=== PATIENT | female | born 1950 | race Caucasian/White ===

== ENCOUNTER → 2016-05-08 | Outpatient (CLI) | payer MEDICARE, MEDICAID ==
[~2016-05-08] MED LIST: ABILIFY 15MG TA15 MG PO; ABILIFY5 MG PO; ACTOS 45MG45 MG/TAB PO; ALBUTEROL0.83 MG/ML IH; ALDACTONE 100M100 MG PO; ALDACTONE50 MG PO; ALLEGRA180 MG PO; ALTACE 5MG5 MG PO; AMBIEN10 MG PO; AMBIEN5 MG PO; AMITRIPTYLINE H25 M1 PO; AMITRIPTYLINE H50 M1 PO; ANTIVERT 25MG25 MG PO; ASPIR-LOW81 MG PO; ASPIRIN E.C. 8181 MG PO; ATIVAN0.5 MG PO; BACITRACIN OPH3.5 GM OU; BACLOFEN10 MG PO; BASAGLAR K100 UNIT/1; BASAGLAR K100 UNIT/1 SQ; BENADRYL25 M1 PO; BICTOZA PO; CADUET 10 MG-201 TAB PO; CALCIUM CARBO1250 MG PO; CELEXA 20MG20 MG/TAB PO; CELEXA20 MG PO; CENTRUM1 TAB PO; CLARITIN 1010 MG/TAB PO; COLACE 100100 MG/CAP PO; CORTEF 10MG TAB10 MG PO; CRESTOR 10MG10 MG PO; CRESTOR10 MG PO; CYMBALTA 30MG30 MG PO; DECADRON0.5 MG PO; DESYREL 50MG50 MG PO; DIABETA 5MG5 MG/TAB PO; DILANTIN 100MG100 MG PO; DOCUSATE CALCI100 MG PO; EXFORGE 5/160 PO; FLEXERIL5 MG PO; FLONASE NASAL S16 GM NS; FOSAMAX 70MG TA70 MG PO; GABAPENTIN300 M1 PO; GLUCOPHAGE500 MG/TAB PO; HEPARIN LOCK FLU5 M1 IV; HUMALOG100 U/ML SC; HUMALOG100 U/ML SQ; HYDROCODONE/APAP; JANUVIA100 MG PO; K-DUR 10 MEQ T10 MEQ; K-DUR 10 MEQ T10 MEQ PO; KEPPRA 500MG500 MG PO; KEPPRA750 MG PO; KLONOPIN 0.5MG0.5 MG PO; KLONOPIN 1MG1 MG PO; KLONOPIN1 MG PO; KLOR-CON SPRIN10 MEQ PO; LACTULOSE10 GM/153 PO; LANTUS; LANTUS SOLOS100 U/ML SQ; LANTUS100 U/ML SC; LANTUS100 U/ML SQ; LASIX 20MG TABL20 MG PO; LASIX 40MG TABL40 MG PO; LEVAQUIN 5500 MG/TA1 PO; LEVEMIR FLEX100 U/ML SQ; LEVEMIR SQ; LEVEMIR100 U/ML SC; LEXAPRO20 MG PO; LIORESAL 1010 MG/TAB PO; LIPITOR20 MG PO; LISINOPRIL/HCTZ1 TA2 PO; LISINOPRIL10 MG PO; MACROBID 1100 MG/CAP PO; MAG-OX 400400 MG/TAB PO; METANX 2.8 MG-21 TAB PO; MICRO-K 1010 MEQ PO; MIRAPEX PO; MULTIVITAMIN1 CTB PO; NEURONTIN300 MG PO; NEURONTIN300 MG/CAP PO; NORCO 325 MG-51 TAB PO; NOVOLOG 100U100 U/M1 SC; NOVOLOG 100U100 U/M1 SQ; NOVOLOG FLEX100 U/ML SQ; NS INT FLUSH 1010 ML IV; NYSTAT-RX1 POW; NYSTATIN POWDER30 GM TOP; OMEPRAZOLE D/R20 MG PO; PREMARIN 0.60.625 MG PO; PRESERVISION1 SGL PO; PRILOSEC 20MG20 MG PO; PRINIVIL2.5 MG PO; PRINIVIL5 MG PO; REGLAN 5MG T5 MG/TAB PO; REMERON15 MG PO; REQUIP 1MG T1 MG/TAB PO; REQUIP2 MG PO; RISPERDAL 1M1 MG/TAB PO; SIMVASTATIN40 MG PO; SINEMET 25/101 UDTAB PO; SUPRAX200 MG PO; SYMBICORT1 AE2 IH; TEGRETOL 2200 MG/TA1 PO; TEGRETOL 2200 MG/TAB PO; TRAZODONE HCL100 MG PO; TYLENOL 325MG325 MG PO; TYLENOL 500MG500 MG PO; ULTRAM 50MG TAB50 MG PO; UNABLE; VISTARIL 2525 MG/CAP PO; VITAMIN D1000 IU PO; XIFAXAN550 MG PO; ZANTAC 150150 MG PO; ZAROXOLYN 2.52.5 MG PO; ZAROXOLYN5 MG PO; ZESTRIL 5MG5 MG PO; ZESTRIL2.5 MG PO; ZOCOR 40MG40 MG PO; ZOFRAN 4MG T4 MG/TAB PO; ZOFRAN8 MG PO; ZOLOFT 25MG25 MG PO; ZOLOFT100 MG PO; ZOLPIDEM5 MG PO; [UNRECOGNIZED DRUG - CODE] PO; [UNRECOGNIZED DRUG - OTHER] PO
== END ==
LOC: MHCPAIN 08:49
DX: G89.29 Other chronic pain (principal); M47.816 Spondylosis without myelopathy or radiculopathy, lumbar region; M53.3 Sacrococcygeal disorders, not elsewhere classified
CPT/HCPCS: G0463

== ENCOUNTER 2016-05-13 02:42 | Observation (INO) | payer MEDICARE, MEDICAID ==
[~2016-05-13] VITALS: Ht 154.9 cm; Wt 86.9 kg
[~2016-05-13 02:42] MED LIST changes: -ALDACTONE 100M100 MG PO; -ALDACTONE50 MG PO; -AMITRIPTYLINE H25 M1 PO; -AMITRIPTYLINE H50 M1 PO; -BACITRACIN OPH3.5 GM OU; -BASAGLAR K100 UNIT/1; -BASAGLAR K100 UNIT/1 SQ; -CYMBALTA 30MG30 MG PO; -DIABETA 5MG5 MG/TAB PO; -FLEXERIL5 MG PO; -HEPARIN LOCK FLU5 M1 IV; -K-DUR 10 MEQ T10 MEQ; -K-DUR 10 MEQ T10 MEQ PO; -KLOR-CON SPRIN10 MEQ PO; -LACTULOSE10 GM/153 PO; -LANTUS SOLOS100 U/ML SQ; -LASIX 20MG TABL20 MG PO; -LEVAQUIN 5500 MG/TA1 PO; -LEVEMIR FLEX100 U/ML SQ; -LEVEMIR SQ; -MACROBID 1100 MG/CAP PO; -MAG-OX 400400 MG/TAB PO; -MULTIVITAMIN1 CTB PO; -NOVOLOG 100U100 U/M1 SQ; -NOVOLOG FLEX100 U/ML SQ; -NS INT FLUSH 1010 ML IV; -NYSTATIN POWDER30 GM TOP; -PRESERVISION1 SGL PO; -PRINIVIL2.5 MG PO; -PRINIVIL5 MG PO; -REQUIP 1MG T1 MG/TAB PO; -SUPRAX200 MG PO; -TEGRETOL 2200 MG/TA1 PO; -VISTARIL 2525 MG/CAP PO; -XIFAXAN550 MG PO; -ZAROXOLYN 2.52.5 MG PO; -ZAROXOLYN5 MG PO; -ZESTRIL 5MG5 MG PO
[2016-05-13 03:27] LABS: BASO % 0.7 % (0.0-2.0); EOS # 0.3 (0.0-0.7); EOS % 8.3 % (0-4.0); GRAN # 1.4 (1.4-6.5); GRAN % 46.1 % (42.2-75.2); MEAN CELL VOLUME 89 fl (80.0-100.0); MEAN CORPUSCULAR HGB CONC 33 g/dl (33.0-37.0); MONO # 0.4 (0.1-0.6); MONO % 11.9 % (1.7-9.3)
[2016-05-13 03:28] LABS: HEMATOCRIT 33.8 % (37.0-47.0); HEMOGLOBIN 11.2 g/dl (12.5-16.0); MEAN CORPUSCULAR HEMOGLOBIN 29 pg (27.0-31.0); PLATELET COUNT 73 K/mm3 (130-400)
[2016-05-13 03:42] LABS: ALANINE AMINOTRANSFERASE 28 U/L (9-52); ALKALINE PHOSPHATASE 117 U/L (50-136); ANION GAP 8 mmol/L (7-16); BILIRUBIN,TOTAL 1.8 mg/dL (0.0-1.0); BLOOD UREA NITROGEN 10 mg/dL (7-17); CALCIUM 8.2 mg/dL (8.4-10.2); CARBON DIOXIDE 33 mmol/L (22-30); CHLORIDE 98 mmol/L (98-107); CREATINE KINASE 59 U/L (30-135); CREATININE, serum 0.66 mg/dL (0.52-1.25); GLUCOSE 194 mg/dL (74-106); INR 1.3 (0.8-3.0); LIPASE 126 U/L (23-300); POTASSIUM 3.4 mmol/L (3.4-5.0); PROTHROMBIN TIME 14.4 SECONDS (9.7-12.8); SODIUM 138 mmol/L (137-145); TOTAL PROTEIN 6.2 gm/dL (6.4-8.2)
[2016-05-13 03:43] LABS: INFLUENZA B NEGATIVE
[2016-05-13 03:47] LABS: PH 5 (5-8); URINE APPEARANCE Clear; URINE BACTERIA None Seen /hpf; URINE BILIRUBIN Negative (NEGATIVE); URINE BLOOD Negative (NEGATIVE); URINE COLOR Amber; URINE GLUCOSE 3+ (NEGATIVE); URINE KETONE Trace (NEGATIVE); URINE RBC 0-2 /hpf; URINE UROBILINOGEN >=4.0 mg/dL (NEGATIVE); URINE WBC 0-2 /hpf
[2016-05-13 03:52] LABS: B-TYPE NATRIURETIC PEPTIDE 117 pg/mL (0-125)
[2016-05-13 03:53] LABS: TROPONIN-I < 0.012 ng/mL (0.000-0.034)
[2016-05-13] MEDS ORDERED: CYMBALTA 30MG30 MG PO (05:51)
[2016-05-13] MEDS ORDERED: PRINIVIL2.5 MG PO (05:52)
[2016-05-13] MEDS ORDERED: VISTARIL 2525 MG/CAP PO (05:53)
[2016-05-13] MEDS ORDERED: TEGRETOL 2200 MG/TA1 PO (05:53)
[2016-05-13] MEDS ORDERED: NORCO 325 MG-51 TAB PO (05:54)
[2016-05-13] MEDS ORDERED: NOVOLOG FLEX100 U/ML SQ (05:56)
[2016-05-13] MEDS ORDERED: LANTUS SOLOS100 U/ML SQ (05:56)
[2016-05-13] MEDS ORDERED: REQUIP 1MG T1 MG/TAB PO (06:08)
[2016-05-13] MEDS ORDERED: SINEMET 25/101 UDTAB PO (06:13)
[2016-05-13 06:56] VITALS: BP 153/66; PULSE 73; TEMP 89.1; TEMP 98.1
[2016-05-13] MEDS ORDERED: NYSTATIN POWDER30 GM TOP (07:46)
[2016-05-13 08:24] VITALS: BP 160/69; PULSE 73; TEMP 98.4
[2016-05-13 09:00] LABS: AMPHETAMINE URINE NEGATIVE; BARBITURATES URINE NEGATIVE; BENZODIAZEPINES URINE POSITIVE; BUPRENORPHINE URINE NEGATIVE; METHADONE URINE NEGATIVE; OPIATES URINE NEGATIVE; OXYCODONE URINE NEGATIVE; PHENCYCLIDINE URINE NEGATIVE; PROPOXYPHENE URINE NEGATIVE; THC CANNABINOIDS URINE NEGATIVE
[2016-05-13 09:14] LABS: CALCIUM 7.8 mg/dL (8.4-10.2); CREATININE, serum 0.57 mg/dL (0.52-1.25); POTASSIUM 3.4 mmol/L (3.4-5.0)
[2016-05-13 09:28] LABS: PROLACTIN 2.2 ng/mL (3.0-18.6)
[2016-05-13 09:42] LABS: THYROID STIMULATING HORMONE 0.313 uIU/mL (0.465-4.680)
[2016-05-13] MEDS ORDERED: BACITRACIN OPH3.5 GM OU (10:15)
[2016-05-13 12:16] VITALS: BP 138/86; PULSE 75; TEMP 97.2
[2016-05-13 16:08] VITALS: BP 157/65; PULSE 73; TEMP 98.4
[2016-05-13 20:13] VITALS: BP 157/59; PULSE 74; TEMP 98.1
[2016-05-14 00:08] VITALS: BP 98/64; PULSE 81; TEMP 98.8
[2016-05-14 03:29] VITALS: BP 156/58; PULSE 81; TEMP 98.7
[2016-05-14 08:45] VITALS: BP 169/67; PULSE 80; TEMP 97.9
[2016-05-14 09:53] LABS: MAGNESIUM 1.5 mg/dL (1.6-2.3)
[2016-05-14 10:25] LABS: THYROID STIMULATING HORMONE 0.691 uIU/mL (0.465-4.680)
[2016-05-14 10:54] LABS: THYROXINE (T4)-TOTAL 5.3 ug/dL (5.5-11.0)
[2016-05-14] MEDS ORDERED: NEURONTIN300 MG/CAP PO (11:02)
[2016-05-14] MEDS ORDERED: KLONOPIN 0.5MG0.5 MG PO (11:02)
[2016-05-15 13:14] LABS: ALBUMIN FRACTION 2.8 g/dL (2.6-4.5); ALBUMIN PERCENTAGE 54.7 % (48.7-61.8); ALPHA 1 FRACTION 0.3 g/dL (0.3-0.5); ALPHA 1 PERCENTAGE 5.4 % (3.4-8.3); ALPHA 2 FRACTION 0.5 g/dL (0.6-1.2); ALPHA 2 PERCENTAGE 9.3 % (8.4-17.5); BETA 1 FRACTION 0.4 g/dL (0.4-0.6); BETA 1 PERCENTAGE 7.7 % (5.4-8.9); BETA 2 FRACTION 0.4 g/dL (0.2-0.5); BETA 2 PERCENTAGE 7.1 % (3.8-7.7); GAMMA FRACTION 0.8 g/dL (0.4-1.7); GAMMA PERCENTAGE 15.8 % (8.1-23.0); SERUM PROTEIN TOTAL 5.2 g/dL (6.0-7.6)
[2016-05-16 14:23] LABS: .COPPER,S 1.42 mcg/mL (())
[2016-05-21 08:59] LABS: VITAMIN E 4.3 mg/L (())
== END 2016-05-14 13:27 | disposition home or self-care (01) ==
LOC: COL.ER 02:42 → MEDICAL 05:24
PROVIDERS: Emergency Medicine; Internal Medicine; Psychiatry & Neurology Neurology
DX: R41.82 Altered mental status, unspecified (principal); G20 Parkinson's disease; G50.0 Trigeminal neuralgia; R55 Syncope and collapse; E11.42 Type 2 diabetes mellitus with diabetic polyneuropathy; Z79.4 Long term (current) use of insulin; D69.6 Thrombocytopenia, unspecified; I10 Essential (primary) hypertension; G47.33 Obstructive sleep apnea (adult) (pediatric); F32.9 Major depressive disorder, single episode, unspecified
CPT/HCPCS: 99222-AI; G0378; G8978-GP; G8979-GP; J7030

== ENCOUNTER → 2016-05-16 | Outpatient (CLI) | payer MEDICARE, MEDICAID ==
[~2016-05-16] MED LIST changes: +ALDACTONE 100M100 MG PO; +ALDACTONE50 MG PO; +AMITRIPTYLINE H25 M1 PO; +AMITRIPTYLINE H50 M1 PO; +BACITRACIN OPH3.5 GM OU; +BASAGLAR K100 UNIT/1; +BASAGLAR K100 UNIT/1 SQ; +CYMBALTA 30MG30 MG PO; +DIABETA 5MG5 MG/TAB PO; +FLEXERIL5 MG PO; +HEPARIN LOCK FLU5 M1 IV; +K-DUR 10 MEQ T10 MEQ; +K-DUR 10 MEQ T10 MEQ PO; +KLOR-CON SPRIN10 MEQ PO; +LACTULOSE10 GM/153 PO; +LANTUS SOLOS100 U/ML SQ; +LASIX 20MG TABL20 MG PO; +LEVAQUIN 5500 MG/TA1 PO; +LEVEMIR FLEX100 U/ML SQ; +LEVEMIR SQ; +MACROBID 1100 MG/CAP PO; +MAG-OX 400400 MG/TAB PO; +MULTIVITAMIN1 CTB PO; +NOVOLOG 100U100 U/M1 SQ; +NOVOLOG FLEX100 U/ML SQ; +NS INT FLUSH 1010 ML IV; +NYSTATIN POWDER30 GM TOP; +PRESERVISION1 SGL PO; +PRINIVIL2.5 MG PO; +PRINIVIL5 MG PO; +REQUIP 1MG T1 MG/TAB PO; +SUPRAX200 MG PO; +TEGRETOL 2200 MG/TA1 PO; +VISTARIL 2525 MG/CAP PO; +XIFAXAN550 MG PO; +ZAROXOLYN 2.52.5 MG PO; +ZAROXOLYN5 MG PO; +ZESTRIL 5MG5 MG PO
== END ==
LOC: MHCPAIN 10:14
DX: Z53.8 Procedure and treatment not carried out for other reasons (principal)

== ENCOUNTER 2016-05-23 12:20 | Emergency (ER) | payer MEDICARE, MEDICAID ==
[~2016-05-23] VITALS: Ht 154.9 cm; Wt 85.5 kg
[~2016-05-23 12:20] MED LIST changes: -ALDACTONE 100M100 MG PO; -ALDACTONE50 MG PO; -AMITRIPTYLINE H25 M1 PO; -AMITRIPTYLINE H50 M1 PO; -BASAGLAR K100 UNIT/1; -BASAGLAR K100 UNIT/1 SQ; -DIABETA 5MG5 MG/TAB PO; -FLEXERIL5 MG PO; -HEPARIN LOCK FLU5 M1 IV; -K-DUR 10 MEQ T10 MEQ; -K-DUR 10 MEQ T10 MEQ PO; -KLOR-CON SPRIN10 MEQ PO; -LACTULOSE10 GM/153 PO; -LASIX 20MG TABL20 MG PO; -LEVAQUIN 5500 MG/TA1 PO; -LEVEMIR FLEX100 U/ML SQ; -LEVEMIR SQ; -MACROBID 1100 MG/CAP PO; -MAG-OX 400400 MG/TAB PO; -MULTIVITAMIN1 CTB PO; -NOVOLOG 100U100 U/M1 SQ; -NS INT FLUSH 1010 ML IV; -PRESERVISION1 SGL PO; -PRINIVIL5 MG PO; -SUPRAX200 MG PO; -XIFAXAN550 MG PO; -ZAROXOLYN 2.52.5 MG PO; -ZAROXOLYN5 MG PO; -ZESTRIL 5MG5 MG PO
[2016-05-23 12:28] VITALS: TEMP 98.1
[2016-05-23 12:51] LABS: BASO % 0.7 % (0.0-2.0); EOS # 0.3 (0.0-0.7); EOS % 5.7 % (0-4.0); LYMPH # 0.8 (1.2-3.4); LYMPH % 18.3 % (20.0-51.0); MEAN CELL VOLUME 89 fl (80.0-100.0); MEAN CORPUSCULAR HGB CONC 33 g/dl (33.0-37.0); MEAN PLATELET VOLUME 11.9 fl (7.4-10.4); MONO # 0.5 (0.1-0.6); MONO % 11.1 % (1.7-9.3); PLATELET COUNT 77 K/mm3 (130-400); RED BLOOD COUNT 3.81 M/mm3 (4.10-5.30); REDCELL DISTRIBUTION WIDTH-CV 14.3 % (11.5-14.5); WHITE BLOOD COUNT 4.6 K/mm3 (4.8-10.8)
[2016-05-23 12:55] LABS: ADJUSTED CALCIUM 9.3 mg/dL (8.4-10.2); ALANINE AMINOTRANSFERASE 23 U/L (9-52); ALBUMIN 3.2 gm/dL (3.5-5.0); ALKALINE PHOSPHATASE 176 U/L (50-136); ANION GAP 9 mmol/L (7-16); BILIRUBIN,TOTAL 1.3 mg/dL (0.0-1.0); BLOOD UREA NITROGEN 9 mg/dL (7-17); CALCIUM 8.7 mg/dL (8.4-10.2); CARBON DIOXIDE 31 mmol/L (22-30); CHLORIDE 96 mmol/L (98-107); CREATINE KINASE 105 U/L (30-135); CREATININE, serum 0.66 mg/dL (0.52-1.25); GLUCOSE 380 mg/dL (74-106); SODIUM 136 mmol/L (137-145); TOTAL PROTEIN 6.6 gm/dL (6.4-8.2)
[2016-05-23 12:58] LABS: HEMOGLOBIN 11.1 g/dl (12.5-16.0); MEAN CORPUSCULAR HEMOGLOBIN 29 pg (27.0-31.0)
[2016-05-23 13:06] LABS: B-TYPE NATRIURETIC PEPTIDE 108 pg/mL (0-125)
[2016-05-23 13:19] LABS: TROPONIN-I < 0.012 ng/mL (0.000-0.034)
[2016-05-23 13:37] LABS: INR 1.2 (0.8-3.0); PROTHROMBIN TIME 13.9 SECONDS (9.7-12.8)
[2016-05-23 13:54] LABS: PH 6 (5-8); SQUAMOUS EPITHELIAL 0-2 /hpf; URINE APPEARANCE Hazy; URINE BACTERIA Rare /hpf; URINE BILIRUBIN Negative (NEGATIVE); URINE BLOOD Negative (NEGATIVE); URINE COLOR Yellow; URINE GLUCOSE 3+ (NEGATIVE); URINE KETONE Negative (NEGATIVE); URINE RBC 0-2 /hpf; URINE WBC >50 /hpf
[2016-05-23] MEDS ORDERED: SINEMET 25/101 UDTAB PO (15:34)
[2016-05-23] MEDS ORDERED: LEVAQUIN 5500 MG/TA1 PO (15:34)
[2016-05-23 16:19] VITALS: BP 146/70; PULSE 88
== END 2016-05-23 16:19 | disposition home or self-care (01) ==
LOC: COL.ER 12:20
PROVIDERS: Emergency Medicine
DX: N39.0 Urinary tract infection, site not specified (principal); B96.89 Other specified bacterial agents as the cause of diseases classified elsewhere; G20 Parkinson's disease; I10 Essential (primary) hypertension; E11.9 Type 2 diabetes mellitus without complications; Z79.4 Long term (current) use of insulin
CPT/HCPCS: J1956

== ENCOUNTER → 2016-06-24 | Outpatient (CLI) | payer MEDICARE, MEDICAID ==
[~2016-06-24] MED LIST changes: +ALDACTONE 100M100 MG PO; +ALDACTONE50 MG PO; +AMITRIPTYLINE H25 M1 PO; +AMITRIPTYLINE H50 M1 PO; +BASAGLAR K100 UNIT/1; +BASAGLAR K100 UNIT/1 SQ; +DIABETA 5MG5 MG/TAB PO; +FLEXERIL5 MG PO; +HEPARIN LOCK FLU5 M1 IV; +K-DUR 10 MEQ T10 MEQ; +K-DUR 10 MEQ T10 MEQ PO; +KLOR-CON SPRIN10 MEQ PO; +LACTULOSE10 GM/153 PO; +LASIX 20MG TABL20 MG PO; +LEVAQUIN 5500 MG/TA1 PO; +LEVEMIR FLEX100 U/ML SQ; +LEVEMIR SQ; +MACROBID 1100 MG/CAP PO; +MAG-OX 400400 MG/TAB PO; +MULTIVITAMIN1 CTB PO; +NOVOLOG 100U100 U/M1 SQ; +NS INT FLUSH 1010 ML IV; +PRESERVISION1 SGL PO; +PRINIVIL5 MG PO; +SUPRAX200 MG PO; +XIFAXAN550 MG PO; +ZAROXOLYN 2.52.5 MG PO; +ZAROXOLYN5 MG PO; +ZESTRIL 5MG5 MG PO
== END ==
LOC: COL.RAD 08:55
DX: G20 Parkinson's disease (principal); R13.19 Other dysphagia
CPT/HCPCS: G8996-GN; G8997-GN; G8998-GN

== ENCOUNTER 2016-07-15 14:15 | Outpatient (RCR) | payer MEDICARE, MEDICAID ==
[~2016-07-15 14:15] MED LIST changes: -ALDACTONE 100M100 MG PO; -ALDACTONE50 MG PO; -AMITRIPTYLINE H25 M1 PO; -AMITRIPTYLINE H50 M1 PO; -BASAGLAR K100 UNIT/1; -BASAGLAR K100 UNIT/1 SQ; -DIABETA 5MG5 MG/TAB PO; -FLEXERIL5 MG PO; -HEPARIN LOCK FLU5 M1 IV; -K-DUR 10 MEQ T10 MEQ; -K-DUR 10 MEQ T10 MEQ PO; -KLOR-CON SPRIN10 MEQ PO; -LACTULOSE10 GM/153 PO; -LASIX 20MG TABL20 MG PO; -LEVEMIR FLEX100 U/ML SQ; -LEVEMIR SQ; -MACROBID 1100 MG/CAP PO; -MAG-OX 400400 MG/TAB PO; -MULTIVITAMIN1 CTB PO; -NOVOLOG 100U100 U/M1 SQ; -NS INT FLUSH 1010 ML IV; -PRESERVISION1 SGL PO; -PRINIVIL5 MG PO; -SUPRAX200 MG PO; -XIFAXAN550 MG PO; -ZAROXOLYN 2.52.5 MG PO; -ZAROXOLYN5 MG PO; -ZESTRIL 5MG5 MG PO
[2016-07-22] MEDS ORDERED: TEGRETOL 2200 MG/TA1 PO (05:21)
[2016-07-22] MEDS ORDERED: CYMBALTA 30MG30 MG PO (05:22)
[2016-07-22] MEDS ORDERED: LASIX 20MG TABL20 MG PO (05:23)
[2016-07-22] MEDS ORDERED: K-DUR 10 MEQ T10 MEQ PO (05:24)
[2016-07-22] MEDS ORDERED: REQUIP 1MG T1 MG/TAB PO (05:25)
[2016-07-22] MEDS ORDERED: AMITRIPTYLINE H25 M1 PO (05:25)
[2016-07-22] MEDS ORDERED: SINEMET 25/101 UDTAB PO (08:05)
[2016-07-22] MEDS ORDERED: NEURONTIN300 MG/CAP PO (08:08)
[2016-07-22] MEDS ORDERED: NOVOLOG 100U100 U/M1 SQ (08:13)
[2016-07-22] MEDS ORDERED: ZESTRIL 5MG5 MG PO (08:16)
[2016-07-22] MEDS ORDERED: PRESERVISION1 SGL PO (08:18)
[2016-07-22] MEDS ORDERED: MULTIVITAMIN1 CTB PO (08:19)
[2016-07-23] MEDS ORDERED: LACTULOSE10 GM/153 PO (15:23)
[2016-07-28] MEDS ORDERED: LANTUS SOLOS100 U/ML SQ (20:09)
[2016-07-28] MEDS ORDERED: NOVOLOG 100U100 U/M1 SQ (20:14)
[2016-08-03] MEDS ORDERED: SUPRAX200 MG PO (12:26)
[2016-08-12] MEDS ORDERED: ALDACTONE50 MG PO (13:50)
[2016-08-12] MEDS ORDERED: ZAROXOLYN 2.52.5 MG PO (13:51)
[2016-08-12] MEDS ORDERED: MAG-OX 400400 MG/TAB PO (13:51)
[2016-08-12] MEDS ORDERED: COLACE 100100 MG/CAP PO (13:52)
[2016-08-12] MEDS ORDERED: NOVOLOG FLEX100 U/ML SQ (13:53)
[2016-08-12] MEDS ORDERED: DIABETA 5MG5 MG/TAB PO (13:54)
[2016-08-12] MEDS ORDERED: LEVEMIR FLEX100 U/ML SQ (13:56)
[2016-08-12] MEDS ORDERED: HEPARIN LOCK FLU5 M1 IV (14:22)
[2016-08-12] MEDS ORDERED: NS INT FLUSH 1010 ML IV (14:22)
== END 2016-08-12 15:26 | disposition home or self-care (01) ==
LOC: WSPT 14:15
DX: M53.3 Sacrococcygeal disorders, not elsewhere classified (principal)
CPT/HCPCS: G8978-GP; G8979-GP; G8980-GP

== ENCOUNTER 2016-07-22 04:14 | Inpatient (IN) | payer MEDICARE, MEDICAID ==
[~2016-07-22] VITALS: Ht 154.9 cm; Wt 96.7 kg
[2016-07-22] VITALS (16 sets, daily range): BP systolic 106–130; BP diastolic 45–67; PULSE 74–81; TEMP 97.7–98.4
[2016-07-22 04:46] LABS: PH 6 (5-8); SQUAMOUS EPITHELIAL 0-2 /hpf; URINE APPEARANCE Clear; URINE BACTERIA None Seen /hpf; URINE BILIRUBIN Negative (NEGATIVE); URINE BLOOD Negative (NEGATIVE); URINE COLOR Yellow; URINE GLUCOSE 3+ (NEGATIVE); URINE KETONE Trace (NEGATIVE); URINE RBC 0-2 /hpf; URINE UROBILINOGEN Negative (NEGATIVE); URINE WBC 0-2 /hpf
[2016-07-22 05:09] LABS: ADJUSTED CALCIUM 8.9 mg/dL (8.4-10.2); ALBUMIN 2.7 gm/dL (3.5-5.0); BILIRUBIN,TOTAL 0.8 mg/dL (0.0-1.0); CALCIUM 7.9 mg/dL (8.4-10.2); CREATININE, serum 0.69 mg/dL (0.52-1.25); POTASSIUM 3.9 mmol/L (3.4-5.0); TOTAL PROTEIN 5.5 gm/dL (6.4-8.2)
[2016-07-22] MEDS ORDERED: TEGRETOL 2200 MG/TA1 PO (05:21)
[2016-07-22] MEDS ORDERED: CYMBALTA 30MG30 MG PO (05:22)
[2016-07-22] MEDS ORDERED: LASIX 20MG TABL20 MG PO (05:23)
[2016-07-22] MEDS ORDERED: K-DUR 10 MEQ T10 MEQ PO (05:24)
[2016-07-22] MEDS ORDERED: REQUIP 1MG T1 MG/TAB PO (05:25)
[2016-07-22] MEDS ORDERED: AMITRIPTYLINE H25 M1 PO (05:25)
[2016-07-22 06:17] LABS: BASO % 0.3 % (0.0-2.0); EOS # 0.4 (0.0-0.7); EOS % 10.7 % (0-4.0); GRAN # 1.5 (1.4-6.5); GRAN % 47.1 % (42.2-75.2); LYMPH # 0.9 (1.2-3.4); LYMPH % 27.2 % (20.0-51.0); MEAN CELL VOLUME 82 fl (80.0-100.0); MEAN CORPUSCULAR HGB CONC 29 g/dl (33.0-37.0); MEAN PLATELET VOLUME 11.1 fl (7.4-10.4); MONO # 0.5 (0.1-0.6); MONO % 14.4 % (1.7-9.3); PLATELET COUNT 84 K/mm3 (130-400); RED BLOOD COUNT 1.89 M/mm3 (4.10-5.30); REDCELL DISTRIBUTION WIDTH-CV 15.9 % (11.5-14.5); WHITE BLOOD COUNT 3.3 K/mm3 (4.8-10.8)
[2016-07-22 06:19] LABS: HEMATOCRIT 15.4 % (37.0-47.0); HEMOGLOBIN 4.4 g/dl (12.5-16.0); MEAN CORPUSCULAR HEMOGLOBIN 23 pg (27.0-31.0)
[2016-07-22] MEDS ORDERED: SINEMET 25/101 UDTAB PO (08:05)
[2016-07-22] MEDS ORDERED: NEURONTIN300 MG/CAP PO (08:08)
[2016-07-22] MEDS ORDERED: NOVOLOG 100U100 U/M1 SQ (08:13)
[2016-07-22] MEDS ORDERED: ZESTRIL 5MG5 MG PO (08:16)
[2016-07-22] MEDS ORDERED: PRESERVISION1 SGL PO (08:18)
[2016-07-22] MEDS ORDERED: MULTIVITAMIN1 CTB PO (08:19)
[2016-07-22 14:00] LABS: HEMATOCRIT 20.3 % (37.0-47.0); HEMOGLOBIN 6.2 g/dl (12.5-16.0)
[2016-07-22 14:23] LABS: RETIC % 1.6 % (0.5-3.52)
[2016-07-22 18:30] LABS: HEMATOCRIT 23.5 % (37.0-47.0); HEMOGLOBIN 7.2 g/dl (12.5-16.0)
[2016-07-23 03:56] VITALS: BP 113/47; PULSE 78; TEMP 98.6
[2016-07-23 07:17] VITALS: BP 111/38; PULSE 79; TEMP 98.2
[2016-07-23 08:52] LABS: MEAN CELL VOLUME 82 fl (80.0-100.0); MEAN CORPUSCULAR HGB CONC 30 g/dl (33.0-37.0); MEAN PLATELET VOLUME 11.1 fl (7.4-10.4); PLATELET COUNT 95 K/mm3 (130-400); RED BLOOD COUNT 2.83 M/mm3 (4.10-5.30); REDCELL DISTRIBUTION WIDTH-CV 15.1 % (11.5-14.5); WHITE BLOOD COUNT 3.7 K/mm3 (4.8-10.8)
[2016-07-23 09:03] LABS: HEMATOCRIT 23.1 % (37.0-47.0); MEAN CORPUSCULAR HEMOGLOBIN 25 pg (27.0-31.0)
[2016-07-23 09:10] LABS: CALCIUM 7.9 mg/dL (8.4-10.2); CREATININE, serum 0.6 mg/dL (0.52-1.25); POTASSIUM 3.4 mmol/L (3.4-5.0)
[2016-07-23 14:15] VITALS: BP 147/68; PULSE 81
[2016-07-23] MEDS ORDERED: LACTULOSE10 GM/153 PO (15:23)
== END 2016-07-23 17:00 | disposition home or self-care (01) | DRG 812 ==
LOC: COL.ER 04:14 → MEDICAL 06:45
PROVIDERS: Emergency Medicine; Internal Medicine; Internal Medicine Gastroenterology
PROC: 0DJ08ZZ Inspection of Upper Intestinal Tract, Via Natural or Artificial Opening Endoscopic (ICD-10-PCS; 2016-07-22)
PROC: 0DBL8ZX Excision of Transverse Colon, Via Natural or Artificial Opening Endoscopic, Diagnostic (ICD-10-PCS; 2016-07-23)
PROC: 0DBN8ZX Excision of Sigmoid Colon, Via Natural or Artificial Opening Endoscopic, Diagnostic (ICD-10-PCS; principal; 2016-07-23 11:30)
DX: D50.0 Iron deficiency anemia secondary to blood loss (chronic) (principal); K76.6 Portal hypertension; I85.10 Secondary esophageal varices without bleeding; E87.1 Hypo-osmolality and hyponatremia; D61.818 Other pancytopenia; E44.0 Moderate protein-calorie malnutrition; Z68.41 Body mass index [BMI] 40.0-44.9, adult; Z66 Do not resuscitate; D12.5 Benign neoplasm of sigmoid colon; K74.69 Other cirrhosis of liver; K75.81 Nonalcoholic steatohepatitis (NASH); I10 Essential (primary) hypertension; E11.9 Type 2 diabetes mellitus without complications; Z79.4 Long term (current) use of insulin
CPT/HCPCS: 99223-AI; 99239; C9113; J1815; J1940; J2250; J3010; J7030; P9016

== ENCOUNTER 2016-07-28 19:14 | Inpatient (IN) | payer MEDICARE, MEDICAID ==
[~2016-07-28] VITALS: Ht 154.9 cm; Wt 101.0 kg
[~2016-07-28 19:14] MED LIST changes: +AMITRIPTYLINE H25 M1 PO; +K-DUR 10 MEQ T10 MEQ PO; +LACTULOSE10 GM/153 PO; +LASIX 20MG TABL20 MG PO; +MULTIVITAMIN1 CTB PO; +NOVOLOG 100U100 U/M1 SQ; +PRESERVISION1 SGL PO; +ZESTRIL 5MG5 MG PO
[2016-07-28 19:31] LABS: BASO % 0.5 % (0.0-2.0); EOS # 0.5 (0.0-0.7); EOS % 11.2 % (0-4.0); GRAN # 2.2 (1.4-6.5); GRAN % 53.3 % (42.2-75.2); LYMPH # 0.9 (1.2-3.4); LYMPH % 21.9 % (20.0-51.0); MEAN CELL VOLUME 83 fl (80.0-100.0); MEAN CORPUSCULAR HGB CONC 30 g/dl (33.0-37.0); MONO # 0.5 (0.1-0.6); MONO % 12.9 % (1.7-9.3); PLATELET COUNT 91 K/mm3 (130-400); REDCELL DISTRIBUTION WIDTH-CV 16.3 % (11.5-14.5); WHITE BLOOD COUNT 4.1 K/mm3 (4.8-10.8)
[2016-07-28 19:33] LABS: HEMATOCRIT 24.1 % (37.0-47.0); HEMOGLOBIN 7.1 g/dl (12.5-16.0); MEAN CORPUSCULAR HEMOGLOBIN 24 pg (27.0-31.0)
[2016-07-28 19:46] LABS: ALANINE AMINOTRANSFERASE 21 U/L (9-52); ALBUMIN 2.8 gm/dL (3.5-5.0); ALKALINE PHOSPHATASE 219 U/L (50-136); ANION GAP 9 mmol/L (7-16); BILIRUBIN,TOTAL 0.8 mg/dL (0.0-1.0); BLOOD UREA NITROGEN 12 mg/dL (7-17); CARBON DIOXIDE 30 mmol/L (22-30); CHLORIDE 94 mmol/L (98-107); CREATININE, serum 0.71 mg/dL (0.52-1.25); LIPASE 267 U/L (23-300); POTASSIUM 4.1 mmol/L (3.4-5.0); SODIUM 132 mmol/L (137-145); TOTAL PROTEIN 5.7 gm/dL (6.4-8.2)
[2016-07-28 19:48] LABS: ACETAMINOPHEN < 10 ug/mL (10-30); GLUCOSE 446 mg/dL (74-106); SALICYLATE < 1.0 mg/dL
[2016-07-28 20:06] LABS: VENOUS BLOOD GAS BE 4.8 (-4-4); VENOUS BLOOD GAS SAO2 42.3 % (60-80)
[2016-07-28 20:07] LABS: VENOUS BLOOD GAS SITE VENIPUNCTURE
[2016-07-28 20:09] LABS: TROPONIN-I < 0.012 ng/mL (0.000-0.034)
[2016-07-28] MEDS ORDERED: LANTUS SOLOS100 U/ML SQ (20:09)
[2016-07-28 20:12] LABS: PH 5 (5-8); SQUAMOUS EPITHELIAL 0-2 /hpf; URINE APPEARANCE Cloudy; URINE BACTERIA Rare /hpf; URINE BILIRUBIN Negative (NEGATIVE); URINE BLOOD Negative (NEGATIVE); URINE COLOR Yellow; URINE GLUCOSE 3+ (NEGATIVE); URINE KETONE Negative (NEGATIVE); URINE UROBILINOGEN Negative (NEGATIVE); URINE WBC >50 /hpf
[2016-07-28 20:13] LABS: AMPHETAMINE URINE NEGATIVE; BARBITURATES URINE NEGATIVE; BENZODIAZEPINES URINE NEGATIVE; BUPRENORPHINE URINE NEGATIVE; METHADONE URINE NEGATIVE; OPIATES URINE NEGATIVE; OXYCODONE URINE NEGATIVE; PHENCYCLIDINE URINE NEGATIVE; PROPOXYPHENE URINE NEGATIVE; THC CANNABINOIDS URINE NEGATIVE
[2016-07-28] MEDS ORDERED: NOVOLOG 100U100 U/M1 SQ (20:14)
[2016-07-28 21:59] VITALS: BP 149/56; PULSE 79; TEMP 98.5
[2016-07-28 23:57] VITALS: BP 130/59; PULSE 79; TEMP 97.8
[2016-07-29] VITALS (10 sets, daily range): BP systolic 80–143; BP diastolic 37–70; PULSE 79–100; TEMP 97.9–98.5
[2016-07-29 01:56] LABS: PROLACTIN < 1.4 ng/mL (3.0-18.6)
[2016-07-30] VITALS (7 sets, daily range): BP systolic 113–164; BP diastolic 50–70; PULSE 65–87; TEMP 97.9–98.6
[2016-07-30 13:12] LABS: CALCIUM 8.2 mg/dL (8.4-10.2); CREATININE, serum 0.7 mg/dL (0.52-1.25); POTASSIUM 3.8 mmol/L (3.4-5.0)
[2016-07-31 04:00] VITALS: BP 124/65; PULSE 89; TEMP 97.4
[2016-07-31 08:04] LABS: CALCIUM 7.8 mg/dL (8.4-10.2); CREATININE, serum 0.8 mg/dL (0.52-1.25); POTASSIUM 3.4 mmol/L (3.4-5.0)
[2016-07-31 08:15] VITALS: BP 132/94; PULSE 116; TEMP 97.4
[2016-07-31 13:59] VITALS: BP 122/67; PULSE 84; TEMP 97.8
[2016-07-31 15:47] VITALS: BP 122/62; PULSE 81; TEMP 98.4
[2016-07-31 20:06] VITALS: BP 128/58; PULSE 83; TEMP 97.9
[2016-07-31 20:25] LABS: CALCIUM 7.9 mg/dL (8.4-10.2); CREATININE, serum 0.83 mg/dL (0.52-1.25); POTASSIUM 3.5 mmol/L (3.4-5.0)
[2016-07-31 23:51] VITALS: BP 121/58; PULSE 86; TEMP 98
[2016-08-01 02:54] VITALS: BP 122/58; PULSE 78; TEMP 98.1
[2016-08-01 07:32] VITALS: BP 120/57; PULSE 79; TEMP 98.7
[2016-08-01 10:33] LABS: MEAN CELL VOLUME 81 fl (80.0-100.0); MEAN CORPUSCULAR HGB CONC 30 g/dl (33.0-37.0); MEAN PLATELET VOLUME 11.4 fl (7.4-10.4); PLATELET COUNT 94 K/mm3 (130-400); RED BLOOD COUNT 2.77 M/mm3 (4.10-5.30); REDCELL DISTRIBUTION WIDTH-CV 16.7 % (11.5-14.5)
[2016-08-01 10:39] LABS: HEMATOCRIT 22.5 % (37.0-47.0); HEMOGLOBIN 6.7 g/dl (12.5-16.0); MEAN CORPUSCULAR HEMOGLOBIN 24 pg (27.0-31.0)
[2016-08-01 11:04] LABS: CALCIUM 8.2 mg/dL (8.4-10.2); CREATININE, serum 0.83 mg/dL (0.52-1.25); POTASSIUM 3.2 mmol/L (3.4-5.0)
[2016-08-01 12:21] VITALS: BP 120/52; PULSE 84; TEMP 97.6
[2016-08-01 17:08] VITALS: BP 134/67; PULSE 82; TEMP 97.9
[2016-08-01 20:14] VITALS: BP 126/66; PULSE 88; TEMP 98
[2016-08-01 23:23] VITALS: BP 134/54; PULSE 86; TEMP 98.2
[2016-08-02 04:55] VITALS: BP 134/56; PULSE 89; TEMP 98.6
[2016-08-02 09:24] VITALS: BP 114/50; PULSE 77; TEMP 97.6
[2016-08-02 12:19] VITALS: BP 104/45; PULSE 94; TEMP 97.5
[2016-08-02 16:10] VITALS: BP 114/47; PULSE 75; TEMP 98.3
[2016-08-02 17:44] LABS: MEAN CELL VOLUME 83 fl (80.0-100.0); MEAN CORPUSCULAR HGB CONC 30 g/dl (33.0-37.0); MEAN PLATELET VOLUME 11.7 fl (7.4-10.4); PLATELET COUNT 93 K/mm3 (130-400); RED BLOOD COUNT 2.69 M/mm3 (4.10-5.30)
[2016-08-02 17:48] LABS: HEMATOCRIT 22.3 % (37.0-47.0); HEMOGLOBIN 6.6 g/dl (12.5-16.0); MEAN CORPUSCULAR HEMOGLOBIN 25 pg (27.0-31.0)
[2016-08-02 17:51] LABS: CALCIUM 8.5 mg/dL (8.4-10.2); CREATININE, serum 0.87 mg/dL (0.52-1.25)
[2016-08-02 18:05] LABS: POTASSIUM 2.3 mmol/L (3.4-5.0)
[2016-08-02 20:17] VITALS: BP 100/44; PULSE 78; TEMP 98.8
[2016-08-03 01:08] VITALS: BP 107/49; PULSE 74; TEMP 98.2
[2016-08-03 03:58] VITALS: BP 100/42; PULSE 72; TEMP 97.5
[2016-08-03 08:21] VITALS: BP 115/47; PULSE 83; TEMP 97.4
[2016-08-03 11:50] VITALS: BP 93/44; PULSE 82; TEMP 98
[2016-08-03] MEDS ORDERED: SUPRAX200 MG PO (12:26)
[2016-08-03 12:56] LABS: MEAN CELL VOLUME 82 fl (80.0-100.0); MEAN CORPUSCULAR HGB CONC 30 g/dl (33.0-37.0); PLATELET COUNT 113 K/mm3 (130-400); RED BLOOD COUNT 2.81 M/mm3 (4.10-5.30); REDCELL DISTRIBUTION WIDTH-CV 17.4 % (11.5-14.5); WHITE BLOOD COUNT 4.2 K/mm3 (4.8-10.8)
[2016-08-03 13:05] LABS: HEMOGLOBIN 6.8 g/dl (12.5-16.0); MEAN CORPUSCULAR HEMOGLOBIN 24 pg (27.0-31.0)
[2016-08-03 13:08] LABS: ADJUSTED CALCIUM 9.5 mg/dL (8.4-10.2); ALBUMIN 2.8 gm/dL (3.5-5.0); BILIRUBIN,TOTAL 0.8 mg/dL (0.0-1.0); CALCIUM 8.5 mg/dL (8.4-10.2); CREATININE, serum 0.91 mg/dL (0.52-1.25)
[2016-08-03 13:21] LABS: POTASSIUM 2.9 mmol/L (3.4-5.0)
[2016-08-03 13:55] LABS: FERRITIN 14 ng/mL (11-264)
== END 2016-08-03 14:48 | disposition home or self-care (01) | DRG 292 ==
LOC: COL.ER 19:14 → MEDICAL 20:58
PROVIDERS: Emergency Medicine; Internal Medicine Cardiovascular Disease
DX: I11.0 Hypertensive heart disease with heart failure (principal); E87.2 Acidosis; D61.818 Other pancytopenia; E87.1 Hypo-osmolality and hyponatremia; Z66 Do not resuscitate; Z68.41 Body mass index [BMI] 40.0-44.9, adult; I50.33 Acute on chronic diastolic (congestive) heart failure; G20 Parkinson's disease; K75.81 Nonalcoholic steatohepatitis (NASH); E11.42 Type 2 diabetes mellitus with diabetic polyneuropathy; D64.9 Anemia, unspecified; R33.8 Other retention of urine; E66.01 Morbid (severe) obesity due to excess calories; Z79.4 Long term (current) use of insulin; E11.649 Type 2 diabetes mellitus with hypoglycemia without coma
CPT/HCPCS: 99231-AI; 99233-AI; 99238; J0696; J1815; J1940; J3480; J7030; J7060

== ENCOUNTER 2016-08-05 10:07 | Inpatient (IN) | payer MEDICARE, MEDICAID ==
[~2016-08-05] VITALS: Ht 154.9 cm; Wt 94.4 kg
[~2016-08-05 10:07] MED LIST changes: +SUPRAX200 MG PO
[2016-08-05 11:07] VITALS: BP 119/47; PULSE 74; TEMP 97.7
[2016-08-05 16:46] VITALS: BP 119/47; PULSE 74; TEMP 97.7
[2016-08-05 18:41] VITALS: BP 117/54; PULSE 73; TEMP 97.5
[2016-08-06 04:58] VITALS: BP 105/44; PULSE 64; TEMP 97.1
[2016-08-06 07:40] LABS: MEAN CELL VOLUME 82 fl (80.0-100.0); MEAN CORPUSCULAR HGB CONC 29 g/dl (33.0-37.0); MEAN PLATELET VOLUME 11.8 fl (7.4-10.4); PLATELET COUNT 109 K/mm3 (130-400); RED BLOOD COUNT 2.54 M/mm3 (4.10-5.30); REDCELL DISTRIBUTION WIDTH-CV 17.4 % (11.5-14.5); WHITE BLOOD COUNT 3.3 K/mm3 (4.8-10.8)
[2016-08-06 07:42] LABS: INR 1.3 (0.8-3.0); PROTHROMBIN TIME 14.7 SECONDS (9.7-12.8)
[2016-08-06 07:52] LABS: HEMATOCRIT 20.8 % (37.0-47.0); HEMOGLOBIN 6.1 g/dl (12.5-16.0); MEAN CORPUSCULAR HEMOGLOBIN 24 pg (27.0-31.0)
[2016-08-06 07:53] LABS: ADD PATHOLOGY DIFF REVIEW NO
[2016-08-06 07:56] LABS: ADJUSTED CALCIUM 8.7 mg/dL (8.4-10.2); ALBUMIN 2.6 gm/dL (3.5-5.0); BILIRUBIN,TOTAL 0.9 mg/dL (0.0-1.0); CALCIUM 7.6 mg/dL (8.4-10.2); CREATININE, serum 0.85 mg/dL (0.52-1.25); TOTAL PROTEIN 5.6 gm/dL (6.4-8.2)
[2016-08-06 08:10] LABS: POTASSIUM 2.9 mmol/L (3.4-5.0)
[2016-08-06 08:28] LABS: BAND 4 % (0-10); BASOPHIL 2 % (0-2); EOSINOPHIL 2 % (0-4); NEUTROPHILS 53 % (42.0-75.2); TOTAL CELLS COUNTED 100
[2016-08-06 08:29] LABS: ANISOCYTOSIS 2+
[2016-08-06 08:30] LABS: HYPOCHROMIA 3+; OVALOCYTES 1+; POLYCHROMASIA 1+
[2016-08-06 09:33] LABS: ARTERIAL BLD GAS O2 SATURATION 92.3 % (92-100); ARTERIAL BLD GAS TCO2 CT 33.9; ARTERIAL BLOOD GAS BASE EXCESS 9.2 (-2-2); ARTERIAL BLOOD GAS HCO3 32.7 meq/L (22-26); ARTERIAL BLOOD GAS PHT 7.53 C (7.35-7.45); ARTERIAL BLOOD GAS PO2 68.9 mmHg (80-100); ARTERIAL BLOOD GAS PO2T 68.9 (80-100); ARTERIAL BLOOD GAS pH 7.53 (7.35-7.45); OXYHEMOGLOBIN 90.2 %
[2016-08-06 09:34] LABS: ATS? YES
== END 2016-08-06 11:40 | DRG 56 ==
PROVIDERS: Internal Medicine; Internal Medicine Cardiovascular Disease
PROC: 02HV33Z Insertion of Infusion Device into Superior Vena Cava, Percutaneous Approach (ICD-10-PCS; principal; 2016-08-06)
DX: G20 Parkinson's disease (principal); I50.23 Acute on chronic systolic (congestive) heart failure; D61.818 Other pancytopenia; I11.0 Hypertensive heart disease with heart failure; E66.01 Morbid (severe) obesity due to excess calories; Z68.39 Body mass index [BMI] 39.0-39.9, adult; K75.81 Nonalcoholic steatohepatitis (NASH); D64.9 Anemia, unspecified; G47.33 Obstructive sleep apnea (adult) (pediatric); E87.6 Hypokalemia; E11.649 Type 2 diabetes mellitus with hypoglycemia without coma
CPT/HCPCS: 99222-AI; C1751; J1650; J1815

== ENCOUNTER 2016-08-06 11:34 | Inpatient (IN) | payer MEDICARE, MEDICAID ==
[~2016-08-06] VITALS: Ht 154.9 cm; Wt 82.3 kg
[2016-08-06 12:58] VITALS: BP 104/48; PULSE 70; TEMP 98.5
[2016-08-06 13:46] LABS: ADJUSTED CALCIUM 8.8 mg/dL (8.4-10.2); ALBUMIN 2.5 gm/dL (3.5-5.0); BILIRUBIN,TOTAL 0.9 mg/dL (0.0-1.0); CALCIUM 7.6 mg/dL (8.4-10.2); CREATININE, serum 0.82 mg/dL (0.52-1.25); TOTAL PROTEIN 5.3 gm/dL (6.4-8.2)
[2016-08-06 17:26] VITALS: BP 112/45; PULSE 72; TEMP 98.7
[2016-08-06 20:39] VITALS: BP 98/46; PULSE 75; TEMP 98.2
[2016-08-06 23:57] VITALS: BP 89/42; PULSE 73; TEMP 98
[2016-08-07] VITALS (11 sets, daily range): BP systolic 104–125; BP diastolic 40–52; PULSE 67–96; TEMP 97.6–98.6
[2016-08-07 08:45] LABS: MEAN CELL VOLUME 85 fl (80.0-100.0); MEAN CORPUSCULAR HGB CONC 30 g/dl (33.0-37.0); MEAN PLATELET VOLUME 11.7 fl (7.4-10.4); PLATELET COUNT 109 K/mm3 (130-400); RED BLOOD COUNT 2.96 M/mm3 (4.10-5.30); REDCELL DISTRIBUTION WIDTH-CV 17.3 % (11.5-14.5); WHITE BLOOD COUNT 3.9 K/mm3 (4.8-10.8)
[2016-08-07 08:53] LABS: HEMOGLOBIN 7.6 g/dl (12.5-16.0); MEAN CORPUSCULAR HEMOGLOBIN 26 pg (27.0-31.0)
[2016-08-07 09:07] LABS: CALCIUM 7.5 mg/dL (8.4-10.2); CREATININE, serum 0.83 mg/dL (0.52-1.25); POTASSIUM 3.6 mmol/L (3.4-5.0)
[2016-08-07 23:29] LABS: CALCIUM 7.6 mg/dL (8.4-10.2); CREATININE, serum 0.81 mg/dL (0.52-1.25)
[2016-08-08 03:11] VITALS: BP 97/36; PULSE 76; TEMP 97.7
[2016-08-08 07:07] LABS: MEAN CELL VOLUME 83 fl (80.0-100.0); MEAN CORPUSCULAR HGB CONC 31 g/dl (33.0-37.0); MEAN PLATELET VOLUME 12.2 fl (7.4-10.4); PLATELET COUNT 114 K/mm3 (130-400); REDCELL DISTRIBUTION WIDTH-CV 17.3 % (11.5-14.5); WHITE BLOOD COUNT 4.6 K/mm3 (4.8-10.8)
[2016-08-08 07:15] LABS: CALCIUM 7.8 mg/dL (8.4-10.2); CREATININE, serum 0.78 mg/dL (0.52-1.25); POTASSIUM 3.7 mmol/L (3.4-5.0)
[2016-08-08 07:20] LABS: HEMATOCRIT 26.5 % (37.0-47.0); HEMOGLOBIN 8.2 g/dl (12.5-16.0); MEAN CORPUSCULAR HEMOGLOBIN 26 pg (27.0-31.0)
[2016-08-08 08:52] VITALS: BP 105/47; BP 1405/47; PULSE 68; TEMP 98.5
[2016-08-08 12:19] VITALS: BP 100/46; PULSE 79; TEMP 98
[2016-08-08 15:33] VITALS: BP 114/60; PULSE 77; TEMP 99.1
[2016-08-08 19:35] VITALS: BP 107/42; PULSE 78; TEMP 98
[2016-08-08 22:44] VITALS: BP 97/50; PULSE 50; TEMP 98.5
[2016-08-09 03:25] VITALS: BP 105/50; PULSE 73; TEMP 97.4
[2016-08-09 07:14] LABS: CALCIUM 8.8 mg/dL (8.4-10.2); CREATININE, serum 0.99 mg/dL (0.52-1.25); POTASSIUM 4.3 mmol/L (3.4-5.0)
[2016-08-09 08:14] VITALS: BP 111/43; PULSE 76; TEMP 98.4
[2016-08-09 11:50] VITALS: BP 99/47; PULSE 77; TEMP 98.3
[2016-08-09 15:46] VITALS: BP 107/50; PULSE 77; TEMP 98.3
[2016-08-09 20:20] VITALS: BP 118/58; PULSE 79; TEMP 98.1
[2016-08-09 23:51] VITALS: BP 108/54; PULSE 79; TEMP 98
[2016-08-10] VITALS (7 sets, daily range): BP systolic 104–131; BP diastolic 44–65; PULSE 82–89; TEMP 97.8–98.2
[2016-08-10 08:13] LABS: CALCIUM 8.7 mg/dL (8.4-10.2); CREATININE, serum 1.16 mg/dL (0.52-1.25); POTASSIUM 4.7 mmol/L (3.4-5.0)
[2016-08-11 03:27] VITALS: BP 115/45; PULSE 81; TEMP 98.3
[2016-08-11 07:19] VITALS: BP 118/57; PULSE 79; TEMP 97.8
[2016-08-11 07:21] LABS: ADJUSTED CALCIUM 9.1 mg/dL (8.4-10.2); ALBUMIN 3.1 gm/dL (3.5-5.0); BILIRUBIN,TOTAL 1.4 mg/dL (0.0-1.0); CALCIUM 8.4 mg/dL (8.4-10.2); CREATININE, serum 1.32 mg/dL (0.52-1.25); POTASSIUM 5.2 mmol/L (3.4-5.0); TOTAL PROTEIN 6.4 gm/dL (6.4-8.2)
[2016-08-11 11:13] VITALS: BP 118/52; PULSE 83; TEMP 98.2
[2016-08-11 15:23] VITALS: BP 119/46; PULSE 114; TEMP 98
[2016-08-11 20:29] VITALS: BP 100/55; PULSE 80; TEMP 98.3
[2016-08-11 23:01] VITALS: BP 121/57
[2016-08-12 00:38] VITALS: BP 102/46; PULSE 78; TEMP 97.4
[2016-08-12 04:36] VITALS: BP 98/40; PULSE 77; TEMP 97.8
[2016-08-12 05:40] LABS: MEAN CELL VOLUME 82 fl (80.0-100.0); MEAN CORPUSCULAR HGB CONC 31 g/dl (33.0-37.0); MEAN PLATELET VOLUME 11.1 fl (7.4-10.4); PLATELET COUNT 153 K/mm3 (130-400); RED BLOOD COUNT 3.49 M/mm3 (4.10-5.30); REDCELL DISTRIBUTION WIDTH-CV 18.3 % (11.5-14.5); WHITE BLOOD COUNT 6.3 K/mm3 (4.8-10.8)
[2016-08-12 05:44] LABS: HEMATOCRIT 28.7 % (37.0-47.0); HEMOGLOBIN 8.8 g/dl (12.5-16.0); MEAN CORPUSCULAR HEMOGLOBIN 25 pg (27.0-31.0)
[2016-08-12 05:50] LABS: ANION GAP 9 mmol/L (7-16); BLOOD UREA NITROGEN 30 mg/dL (7-17); CALCIUM 7.8 mg/dL (8.4-10.2); CARBON DIOXIDE 26 mmol/L (22-30); CHLORIDE 94 mmol/L (98-107); CREATININE, serum 1.42 mg/dL (0.52-1.25); GLUCOSE 188 mg/dL (74-106); SODIUM 129 mmol/L (137-145)
[2016-08-12 06:01] LABS: TROPONIN-I < 0.012 ng/mL (0.000-0.034)
[2016-08-12 06:09] LABS: AMMONIA 70 umol/L (11-35)
[2016-08-12 08:44] VITALS: BP 120/47; PULSE 81; TEMP 97.8
[2016-08-12 11:56] VITALS: BP 112/56; PULSE 82; TEMP 97.8
[2016-08-12] MEDS ORDERED: ALDACTONE50 MG PO (13:50)
[2016-08-12] MEDS ORDERED: ZAROXOLYN 2.52.5 MG PO (13:51)
[2016-08-12] MEDS ORDERED: MAG-OX 400400 MG/TAB PO (13:51)
[2016-08-12] MEDS ORDERED: COLACE 100100 MG/CAP PO (13:52)
[2016-08-12] MEDS ORDERED: NOVOLOG FLEX100 U/ML SQ (13:53)
[2016-08-12] MEDS ORDERED: DIABETA 5MG5 MG/TAB PO (13:54)
[2016-08-12] MEDS ORDERED: LEVEMIR FLEX100 U/ML SQ (13:56)
[2016-08-12] MEDS ORDERED: NS INT FLUSH 1010 ML IV (14:22)
[2016-08-12] MEDS ORDERED: HEPARIN LOCK FLU5 M1 IV (14:22)
[2016-08-12 16:06] VITALS: BP 117/50; PULSE 84; TEMP 97.4
== END 2016-08-12 16:57 | DRG 292 ==
LOC: MEDICAL 11:34
PROVIDERS: Internal Medicine; Internal Medicine Cardiovascular Disease
DX: I11.0 Hypertensive heart disease with heart failure (principal); D61.818 Other pancytopenia; E87.1 Hypo-osmolality and hyponatremia; N17.9 Acute kidney failure, unspecified; I50.33 Acute on chronic diastolic (congestive) heart failure; Z91.11 Patient's noncompliance with dietary regimen; K75.81 Nonalcoholic steatohepatitis (NASH); E11.42 Type 2 diabetes mellitus with diabetic polyneuropathy; Z79.4 Long term (current) use of insulin; E87.5 Hyperkalemia; G20 Parkinson's disease; E87.6 Hypokalemia
CPT/HCPCS: 99223-AI; 99231-AI; 99233-AI; 99239; J1644; J1815; J1940; J2060; J3480; J7060; P9016

== ENCOUNTER 2016-08-12 15:05 | Inpatient (IN) | payer MEDICARE, MEDICAID ==
[~2016-08-12] VITALS: Ht 154.9 cm; Wt 83.9 kg
[~2016-08-12 15:05] MED LIST changes: +ALDACTONE50 MG PO; +DIABETA 5MG5 MG/TAB PO; +HEPARIN LOCK FLU5 M1 IV; +LEVEMIR FLEX100 U/ML SQ; +MAG-OX 400400 MG/TAB PO; +NS INT FLUSH 1010 ML IV; +ZAROXOLYN 2.52.5 MG PO
[2016-08-12 20:07] VITALS: BP 109/54; PULSE 77; TEMP 97.7
[2016-08-13 04:26] VITALS: BP 117/51; PULSE 73; TEMP 98.3
[2016-08-13 08:18] LABS: CALCIUM 8.2 mg/dL (8.4-10.2); CREATININE, serum 1.18 mg/dL (0.52-1.25); POTASSIUM 4.5 mmol/L (3.4-5.0)
[2016-08-13 16:16] VITALS: BP 118/53; PULSE 64; TEMP 96.9
[2016-08-14 05:30] VITALS: BP 133/52; PULSE 77; TEMP 97.8
[2016-08-14 16:40] VITALS: BP 107/54; PULSE 81; TEMP 97.7
[2016-08-15] VITALS (7 sets, daily range): BP systolic 103–119; BP diastolic 44–55; PULSE 67–88; TEMP 97.2–98.2
[2016-08-16 00:52] VITALS: BP 105/46; PULSE 60; TEMP 98.2
[2016-08-16 05:16] VITALS: BP 103/46; PULSE 59; TEMP 97.3
[2016-08-16 07:15] LABS: BASO % 0.5 % (0.0-2.0); EOS # 0.5 (0.0-0.7); EOS % 12.9 % (0-4.0); GRAN # 1.6 (1.4-6.5); GRAN % 38.5 % (42.2-75.2); LYMPH # 1.4 (1.2-3.4); MEAN CELL VOLUME 80 fl (80.0-100.0); MEAN CORPUSCULAR HGB CONC 32 g/dl (33.0-37.0); MEAN PLATELET VOLUME 11.6 fl (7.4-10.4); MONO # 0.5 (0.1-0.6); MONO % 12.9 % (1.7-9.3); PLATELET COUNT 107 K/mm3 (130-400); RED BLOOD COUNT 3.02 M/mm3 (4.10-5.30)
[2016-08-16 07:16] LABS: HEMATOCRIT 24.2 % (37.0-47.0); HEMOGLOBIN 7.7 g/dl (12.5-16.0); MEAN CORPUSCULAR HEMOGLOBIN 25 pg (27.0-31.0)
[2016-08-16 07:18] LABS: INR 1.3 (0.8-3.0); PROTHROMBIN TIME 14.4 SECONDS (9.7-12.8)
[2016-08-16 07:28] LABS: ALBUMIN 2.9 gm/dL (3.5-5.0); BILIRUBIN,TOTAL 0.9 mg/dL (0.0-1.0); CALCIUM 8.1 mg/dL (8.4-10.2); CREATININE, serum 0.86 mg/dL (0.52-1.25); POTASSIUM 3.8 mmol/L (3.4-5.0); TOTAL PROTEIN 5.8 gm/dL (6.4-8.2)
[2016-08-16 13:22] VITALS: BP 128/52; PULSE 79; TEMP 98.7
[2016-08-16 16:27] VITALS: BP 118/56; PULSE 78; TEMP 97.4
[2016-08-16 18:00] VITALS: BP 110/53; PULSE 85; TEMP 98.9
[2016-08-16 22:38] VITALS: BP 114/53; PULSE 84; TEMP 97.8
[2016-08-17] VITALS (7 sets, daily range): BP systolic 103–131; BP diastolic 49–56; PULSE 83–90; TEMP 98–98.8
[2016-08-18] VITALS (7 sets, daily range): BP systolic 105–148; BP diastolic 45–60; PULSE 55–89; TEMP 97.5–98.2
[2016-08-19 04:00] VITALS: BP 111/45; PULSE 84; TEMP 97.5
[2016-08-19 05:55] LABS: ADD PATHOLOGY DIFF REVIEW NO; TOTAL CELLS COUNTED 0
[2016-08-19 06:13] LABS: ALBUMIN 2.8 gm/dL (3.5-5.0); BILIRUBIN,TOTAL 0.8 mg/dL (0.0-1.0); CREATININE, serum 0.82 mg/dL (0.52-1.25); MAGNESIUM 1.7 mg/dL (1.6-2.3); POTASSIUM 3.5 mmol/L (3.4-5.0); TOTAL PROTEIN 5.6 gm/dL (6.4-8.2)
[2016-08-19 06:24] LABS: HEMATOCRIT 22.3 % (37.0-47.0); MEAN CELL VOLUME 84 fl (80.0-100.0); MEAN CORPUSCULAR HEMOGLOBIN 26 pg (27.0-31.0); MEAN CORPUSCULAR HGB CONC 31 g/dl (33.0-37.0); MEAN PLATELET VOLUME 12.1 fl (7.4-10.4); PLATELET COUNT 106 K/mm3 (130-400); RED BLOOD COUNT 2.67 M/mm3 (4.10-5.30); REDCELL DISTRIBUTION WIDTH-CV 18.6 % (11.5-14.5)
[2016-08-19 07:59] VITALS: BP 109/49; PULSE 85; TEMP 97.8
[2016-08-19 18:25] VITALS: BP 149/59; PULSE 87; TEMP 97.4
[2016-08-20 05:55] VITALS: BP 104/46; PULSE 83; TEMP 98.5
[2016-08-20 06:06] LABS: ADD PATHOLOGY DIFF REVIEW NO
[2016-08-20 06:26] LABS: MEAN CELL VOLUME 84 fl (80.0-100.0); MEAN CORPUSCULAR HGB CONC 31 g/dl (33.0-37.0); PLATELET COUNT 116 K/mm3 (130-400); RED BLOOD COUNT 2.79 M/mm3 (4.10-5.30); REDCELL DISTRIBUTION WIDTH-CV 18.6 % (11.5-14.5); WHITE BLOOD COUNT 4.3 K/mm3 (4.8-10.8)
[2016-08-20 06:28] LABS: HEMATOCRIT 23.4 % (37.0-47.0); HEMOGLOBIN 7.2 g/dl (12.5-16.0); MEAN CORPUSCULAR HEMOGLOBIN 26 pg (27.0-31.0)
[2016-08-20 06:30] LABS: CALCIUM 8.2 mg/dL (8.4-10.2); CREATININE, serum 0.8 mg/dL (0.52-1.25); INR 1.2 (0.8-3.0); MAGNESIUM 1.8 mg/dL (1.6-2.3); POTASSIUM 3.4 mmol/L (3.4-5.0); PROTHROMBIN TIME 13.8 SECONDS (9.7-12.8)
[2016-08-20 09:40] LABS: ANISOCYTOSIS 2+; BAND 4 % (0-10); EOSINOPHIL 9 % (0-4); HYPOCHROMIA 2+; MICROCYTOSIS 1+; NEUTROPHILS 45 % (42.0-75.2); TOTAL CELLS COUNTED 100
[2016-08-20 09:41] LABS: PLATELET ESTIMATE NORMAL (NORMAL)
[2016-08-20 18:30] VITALS: BP 114/48; PULSE 90; TEMP 98
[2016-08-21 05:07] VITALS: BP 106/45; PULSE 89; TEMP 98.2
[2016-08-21] MEDS ORDERED: XIFAXAN550 MG PO (12:35)
[2016-08-21] MEDS ORDERED: ALDACTONE50 MG PO (12:35)
[2016-08-21] MEDS ORDERED: TEGRETOL 2200 MG/TA1 PO (12:39)
[2016-08-21] MEDS ORDERED: ZAROXOLYN5 MG PO (12:41)
[2016-08-21] MEDS ORDERED: LACTULOSE10 GM/153 PO (12:41)
[2016-08-21] MEDS ORDERED: ZOFRAN 4MG T4 MG/TAB PO (12:42)
== END 2016-08-21 14:10 | disposition home or self-care (01) | DRG 56 ==
PROVIDERS: Family Medicine; Internal Medicine
DX: G20 Parkinson's disease (principal); I50.23 Acute on chronic systolic (congestive) heart failure; E87.1 Hypo-osmolality and hyponatremia; I85.10 Secondary esophageal varices without bleeding; I11.0 Hypertensive heart disease with heart failure; E11.42 Type 2 diabetes mellitus with diabetic polyneuropathy; K75.81 Nonalcoholic steatohepatitis (NASH); E66.01 Morbid (severe) obesity due to excess calories; D64.9 Anemia, unspecified; R56.9 Unspecified convulsions; K74.60 Unspecified cirrhosis of liver; K72.90 Hepatic failure, unspecified without coma
CPT/HCPCS: 99222-AI; 99232-AI; 99233-AI; 99239; J1644; J1815; J2060

== ENCOUNTER 2016-08-23 13:01 | Emergency (ER) | payer MEDICARE, MEDICAID ==
[~2016-08-23] VITALS: Ht 154.9 cm; Wt 84.6 kg
[~2016-08-23 13:01] MED LIST changes: -ALDACTONE 100M100 MG PO; -AMITRIPTYLINE H50 M1 PO; -BASAGLAR K100 UNIT/1; -BASAGLAR K100 UNIT/1 SQ; -FLEXERIL5 MG PO; -K-DUR 10 MEQ T10 MEQ; -KLOR-CON SPRIN10 MEQ PO; -LEVEMIR SQ; -MACROBID 1100 MG/CAP PO; -PRINIVIL5 MG PO
[2016-08-23 13:37] LABS: BASO % 0.3 % (0.0-2.0); EOS # 0.7 (0.0-0.7); EOS % 12.3 % (0-4.0); GRAN % 51.1 % (42.2-75.2); HEMATOCRIT 24.2 % (37.0-47.0); HEMOGLOBIN 7.5 g/dl (12.5-16.0); LYMPH # 1.5 (1.2-3.4); LYMPH % 25.6 % (20.0-51.0); MEAN CELL VOLUME 83 fl (80.0-100.0); MEAN CORPUSCULAR HEMOGLOBIN 26 pg (27.0-31.0); MEAN CORPUSCULAR HGB CONC 31 g/dl (33.0-37.0); MEAN PLATELET VOLUME 11.2 fl (7.4-10.4); MONO # 0.6 (0.1-0.6); MONO % 10.4 % (1.7-9.3); PLATELET COUNT 125 K/mm3 (130-400); REDCELL DISTRIBUTION WIDTH-CV 18.1 % (11.5-14.5); WHITE BLOOD COUNT 5.8 K/mm3 (4.8-10.8)
[2016-08-23 13:45] LABS: PARTIAL THROMBOPLASTIN TIME 32.3 SECONDS (26.0-37.0)
[2016-08-23 13:54] LABS: INR 1.2 (0.8-3.0); PROTHROMBIN TIME 13.3 SECONDS (9.7-12.8)
[2016-08-23 14:10] LABS: B-TYPE NATRIURETIC PEPTIDE 160 pg/mL (0-125); TROPONIN-I < 0.012 ng/mL (0.000-0.034)
[2016-08-23 17:30] VITALS: TEMP 97.3
[2016-08-23 18:45] VITALS: BP 116/70; PULSE 74
== END 2016-08-23 18:45 | disposition home or self-care (01) ==
LOC: COL.ER 13:01
PROVIDERS: Emergency Medicine
DX: K74.60 Unspecified cirrhosis of liver (principal); D64.9 Anemia, unspecified; E11.9 Type 2 diabetes mellitus without complications; I11.0 Hypertensive heart disease with heart failure; I50.9 Heart failure, unspecified; J44.9 Chronic obstructive pulmonary disease, unspecified; G20 Parkinson's disease; K21.9 Gastro-esophageal reflux disease without esophagitis; Z88.0 Allergy status to penicillin; Z88.1 Allergy status to other antibiotic agents; Z88.5 Allergy status to narcotic agent; Z88.8 Allergy status to other drugs, medicaments and biological substances; Z91.018 Allergy to other foods; Z79.4 Long term (current) use of insulin; Z79.82 Long term (current) use of aspirin; Z90.49 Acquired absence of other specified parts of digestive tract; Z90.710 Acquired absence of both cervix and uterus
CPT/HCPCS: P9016

== ENCOUNTER → 2016-08-23 | Outpatient (CLI) | payer MEDICARE, MEDICAID ==
[~2016-08-23] MED LIST changes: +ALDACTONE 100M100 MG PO; +AMITRIPTYLINE H50 M1 PO; +BASAGLAR K100 UNIT/1; +BASAGLAR K100 UNIT/1 SQ; +FLEXERIL5 MG PO; +K-DUR 10 MEQ T10 MEQ; +KLOR-CON SPRIN10 MEQ PO; +LEVEMIR SQ; +MACROBID 1100 MG/CAP PO; +PRINIVIL5 MG PO; +XIFAXAN550 MG PO; +ZAROXOLYN5 MG PO
[2016-08-23 10:30] LABS: MEAN CELL VOLUME 83 fl (80.0-100.0); MEAN CORPUSCULAR HGB CONC 32 g/dl (33.0-37.0); MEAN PLATELET VOLUME 10.6 fl (7.4-10.4); PLATELET COUNT 118 K/mm3 (130-400); RED BLOOD COUNT 2.82 M/mm3 (4.10-5.30); REDCELL DISTRIBUTION WIDTH-CV 18.1 % (11.5-14.5); WHITE BLOOD COUNT 5.1 K/mm3 (4.8-10.8)
[2016-08-23 10:40] LABS: HEMATOCRIT 23.5 % (37.0-47.0); HEMOGLOBIN 7.4 g/dl (12.5-16.0); MEAN CORPUSCULAR HEMOGLOBIN 26 pg (27.0-31.0)
[2016-08-23 11:08] LABS: ADJUSTED CALCIUM 8.8 mg/dL (8.4-10.2); ALBUMIN 3.2 gm/dL (3.5-5.0); CALCIUM 8.2 mg/dL (8.4-10.2); CREATININE, serum 0.82 mg/dL (0.52-1.25); MAGNESIUM 1.8 mg/dL (1.6-2.3); TOTAL PROTEIN 6.2 gm/dL (6.4-8.2)
== END ==
LOC: COL.LAB 09:48
PROVIDERS: Internal Medicine
DX: K74.60 Unspecified cirrhosis of liver (principal)

== ENCOUNTER 2016-09-03 16:23 | Inpatient (IN) | payer MEDICARE, MEDICAID ==
[~2016-09-03] VITALS: Ht 154.9 cm; Wt 88.1 kg
[2016-09-03] VITALS (162 sets, daily range): BP systolic 122; BP diastolic 56; PULSE 72; TEMP 97.7; O2SAT 53–100
[2016-09-03 17:14] LABS: BASO % 0.3 % (0.0-2.0); EOS # 0.3 (0.0-0.7); EOS % 9.6 % (0-4.0); GRAN # 1.7 (1.4-6.5); GRAN % 54.4 % (42.2-75.2); LYMPH # 0.8 (1.2-3.4); LYMPH % 25.2 % (20.0-51.0); MEAN CELL VOLUME 85 fl (80.0-100.0); MEAN CORPUSCULAR HGB CONC 30 g/dl (33.0-37.0); MONO # 0.3 (0.1-0.6); MONO % 10.2 % (1.7-9.3); PLATELET COUNT 67 K/mm3 (130-400); RED BLOOD COUNT 2.83 M/mm3 (4.10-5.30); REDCELL DISTRIBUTION WIDTH-CV 17.6 % (11.5-14.5); WHITE BLOOD COUNT 3.1 K/mm3 (4.8-10.8)
[2016-09-03 17:15] LABS: INR 1.2 (0.8-3.0)
[2016-09-03 17:18] LABS: PARTIAL THROMBOPLASTIN TIME 30.8 SECONDS (26.0-37.0)
[2016-09-03 17:21] LABS: HEMATOCRIT 23.9 % (37.0-47.0); HEMOGLOBIN 7.2 g/dl (12.5-16.0); MEAN CORPUSCULAR HEMOGLOBIN 25 pg (27.0-31.0)
[2016-09-03 17:22] LABS: ADJUSTED CALCIUM 8.9 mg/dL (8.4-10.2); ALBUMIN 3.1 gm/dL (3.5-5.0); BILIRUBIN,TOTAL 0.8 mg/dL (0.0-1.0); CALCIUM 8.2 mg/dL (8.4-10.2); CREATININE, serum 0.71 mg/dL (0.52-1.25); POTASSIUM 5.2 mmol/L (3.4-5.0)
[2016-09-03 17:41] LABS: PH 5 (5-8); SQUAMOUS EPITHELIAL 0-2 /hpf; URINE APPEARANCE Hazy; URINE BACTERIA None Seen /hpf; URINE BILIRUBIN Negative (NEGATIVE); URINE BLOOD Negative (NEGATIVE); URINE COLOR Straw; URINE GLUCOSE 3+ (NEGATIVE); URINE KETONE Negative (NEGATIVE); URINE UROBILINOGEN Negative (NEGATIVE)
[2016-09-03] MEDS ORDERED: BASAGLAR K100 UNIT/1 (18:01)
[2016-09-03] MEDS ORDERED: K-DUR 10 MEQ T10 MEQ (18:01)
[2016-09-03] MEDS ORDERED: AMITRIPTYLINE H50 M1 PO (18:02)
[2016-09-03] MEDS ORDERED: ZESTRIL 5MG5 MG PO (18:03)
[2016-09-03] MEDS ORDERED: SUPRAX200 MG PO (18:03)
[2016-09-03 18:51] LABS: ALLEN TEST YES; ALLENS TEST RESULT PASS; ARTERIAL BLD GAS TCO2 CT 23.4; ARTERIAL BLOOD GAS BASE EXCESS -1.6 (-2-2); ARTERIAL BLOOD GAS HCO3 22.3 meq/L (22-26); ARTERIAL BLOOD GAS PO2 103.7 mmHg (80-100); ARTERIAL BLOOD GAS pH 7.44 (7.35-7.45); ATS? YES
[2016-09-03 19:35] LABS: ANION GAP 11 mmol/L (7-16); BLOOD UREA NITROGEN 9 mg/dL (7-17); CARBON DIOXIDE 23 mmol/L (22-30); CHLORIDE 97 mmol/L (98-107); POTASSIUM 4.3 mmol/L (3.4-5.0); SODIUM 130 mmol/L (137-145)
[2016-09-03 19:39] LABS: GLUCOSE 514 mg/dL (74-106)
[2016-09-03 19:54] LABS: PROLACTIN < 1.4 ng/mL (3.0-18.6)
[2016-09-03] MEDS ORDERED: LEVEMIR SQ (21:47)
[2016-09-04] VITALS (707 sets, daily range): BP systolic 102–130; BP diastolic 43–65; PULSE 70–81; TEMP 98–98.5; O2SAT 73–100
[2016-09-04 00:34] LABS: MAGNESIUM 1.7 mg/dL (1.6-2.3); PHOSPHOROUS 2.9 mg/dL (2.5-4.5)
[2016-09-04 09:27] LABS: CALCIUM 7.9 mg/dL (8.4-10.2); CREATININE, serum 0.64 mg/dL (0.52-1.25); POTASSIUM 3.9 mmol/L (3.4-5.0)
[2016-09-04 09:29] LABS: BASO % 0.3 % (0.0-2.0); EOS # 0.4 (0.0-0.7); EOS % 11.9 % (0-4.0); GRAN # 1.4 (1.4-6.5); GRAN % 43.3 % (42.2-75.2); LYMPH # 1.1 (1.2-3.4); LYMPH % 34.3 % (20.0-51.0); MEAN CELL VOLUME 82 fl (80.0-100.0); MEAN CORPUSCULAR HGB CONC 31 g/dl (33.0-37.0); MEAN PLATELET VOLUME 11.5 fl (7.4-10.4); MONO # 0.3 (0.1-0.6); MONO % 9.6 % (1.7-9.3); PLATELET COUNT 62 K/mm3 (130-400); RED BLOOD COUNT 2.61 M/mm3 (4.10-5.30); REDCELL DISTRIBUTION WIDTH-CV 17.4 % (11.5-14.5); WHITE BLOOD COUNT 3.1 K/mm3 (4.8-10.8)
[2016-09-04 09:34] LABS: HEMATOCRIT 21.5 % (37.0-47.0); HEMOGLOBIN 6.6 g/dl (12.5-16.0); MEAN CORPUSCULAR HEMOGLOBIN 25 pg (27.0-31.0)
[2016-09-04 15:31] LABS: HEMATOCRIT 22.1 % (37.0-47.0); HEMOGLOBIN 6.9 g/dl (12.5-16.0)
[2016-09-05 04:13] VITALS: BP 97/61; PULSE 83; TEMP 98.3
[2016-09-05 06:47] LABS: BASO % 0.5 % (0.0-2.0); EOS # 0.3 (0.0-0.7); GRAN # 1.9 (1.4-6.5); GRAN % 49.5 % (42.2-75.2); LYMPH # 1.1 (1.2-3.4); LYMPH % 30.3 % (20.0-51.0); MEAN CELL VOLUME 83 fl (80.0-100.0); MEAN CORPUSCULAR HGB CONC 30 g/dl (33.0-37.0); MEAN PLATELET VOLUME 11.5 fl (7.4-10.4); MONO # 0.4 (0.1-0.6); MONO % 10.4 % (1.7-9.3); PLATELET COUNT 76 K/mm3 (130-400); REDCELL DISTRIBUTION WIDTH-CV 18.1 % (11.5-14.5); WHITE BLOOD COUNT 3.8 K/mm3 (4.8-10.8)
[2016-09-05 07:06] LABS: HEMATOCRIT 22.5 % (37.0-47.0); HEMOGLOBIN 6.8 g/dl (12.5-16.0); MEAN CORPUSCULAR HEMOGLOBIN 25 pg (27.0-31.0)
[2016-09-05 07:07] LABS: CALCIUM 8.2 mg/dL (8.4-10.2); CREATININE, serum 0.7 mg/dL (0.52-1.25); POTASSIUM 3.2 mmol/L (3.4-5.0)
[2016-09-05 07:22] VITALS: BP 108/40; PULSE 80; TEMP 98.1
[2016-09-05] MEDS ORDERED: TEGRETOL 2200 MG/TA1 PO (11:19)
[2016-09-05 11:32] VITALS: BP 110/39; BP 110/42; PULSE 89
[2016-09-05 14:57] VITALS: BP 102/42; PULSE 78
[2016-09-05 18:09] VITALS: BP 114/52; PULSE 80
[2016-09-05 21:00] VITALS: BP 104/42; PULSE 71; TEMP 97.6
[2016-09-06 00:37] VITALS: BP 95/48; PULSE 78; TEMP 97.7
[2016-09-06 03:46] VITALS: BP 94/42; PULSE 78; TEMP 97.8
[2016-09-06 07:04] LABS: CALCIUM 7.9 mg/dL (8.4-10.2); CREATININE, serum 0.72 mg/dL (0.52-1.25)
[2016-09-06 08:18] VITALS: BP 90/43; PULSE 76; TEMP 97.6
[2016-09-06 11:16] VITALS: BP 102/42; PULSE 85; TEMP 97.2
[2016-09-06] MEDS ORDERED: ALDACTONE 100M100 MG PO ×2 (13:44→14:01)
[2016-09-06] MEDS ORDERED: LEVEMIR SQ (13:50)
[2016-09-06] MEDS ORDERED: MACROBID 1100 MG/CAP PO (13:53)
[2016-09-06] MEDS ORDERED: ZAROXOLYN5 MG PO (14:01)
[2016-09-06] MEDS ORDERED: NOVOLOG 100U100 U/M1 SQ (14:28)
[2016-09-06 16:37] VITALS: BP 102/43; PULSE 83; TEMP 97.4
[2016-09-06 20:15] VITALS: BP 117/48; PULSE 87; TEMP 98.6
[2016-09-07 00:52] VITALS: BP 98/70; PULSE 83; TEMP 98.5
[2016-09-07 04:15] VITALS: BP 102/47; PULSE 78; TEMP 97.7
[2016-09-07 07:44] LABS: ADJUSTED CALCIUM 8.7 mg/dL (8.4-10.2); ALBUMIN 2.7 gm/dL (3.5-5.0); BILIRUBIN,TOTAL 1.2 mg/dL (0.0-1.0); CALCIUM 7.7 mg/dL (8.4-10.2); CREATININE, serum 0.72 mg/dL (0.52-1.25); POTASSIUM 3.9 mmol/L (3.4-5.0); TOTAL PROTEIN 5.7 gm/dL (6.4-8.2)
[2016-09-07 08:06] VITALS: BP 100/38; PULSE 76; TEMP 97.9
[2016-09-07 12:43] VITALS: BP 98/39; PULSE 73; TEMP 98.1
== END 2016-09-07 15:04 | disposition home health service (06) | DRG 291 ==
LOC: COL.ER 16:23 → IMCU 19:05 → MEDICAL 19:05 → IMCU 19:13 → MEDICAL 09-04 15:56
PROVIDERS: Emergency Medicine; Family Medicine; Internal Medicine Cardiovascular Disease
DX: I11.0 Hypertensive heart disease with heart failure (principal); E13.10 Other specified diabetes mellitus with ketoacidosis without coma; N39.0 Urinary tract infection, site not specified; E87.1 Hypo-osmolality and hyponatremia; D61.818 Other pancytopenia; F33.1 Major depressive disorder, recurrent, moderate; Z66 Do not resuscitate; I50.33 Acute on chronic diastolic (congestive) heart failure; E11.42 Type 2 diabetes mellitus with diabetic polyneuropathy; K75.81 Nonalcoholic steatohepatitis (NASH); G20 Parkinson's disease; B96.20 Unspecified Escherichia coli [E. coli] as the cause of diseases classified elsewhere; Z79.4 Long term (current) use of insulin; Z91.14 Patient's other noncompliance with medication regimen; D64.9 Anemia, unspecified
CPT/HCPCS: 90791-AI; 99223-AI; 99232-AI; 99233-AI; 99239; A4315; J0696; J1650; J1815; J1940; J2360; J7030

== ENCOUNTER 2016-09-16 14:45 | Outpatient (RCR) | payer MEDICARE, MEDICAID ==
[~2016-09-16 14:45] MED LIST changes: -BASAGLAR K100 UNIT/1 SQ; -FLEXERIL5 MG PO; -KLOR-CON SPRIN10 MEQ PO; -PRINIVIL5 MG PO
[2016-09-18] MEDS ORDERED: ALDACTONE50 MG PO (16:45)
[2016-09-18] MEDS ORDERED: XIFAXAN550 MG PO (16:47)
[2016-09-18] MEDS ORDERED: DIABETA 5MG5 MG/TAB PO (16:53)
== END 2016-10-02 07:57 | disposition still patient (30) ==
LOC: WSPT 14:45
DX: R53.81 Other malaise (principal)
CPT/HCPCS: G8978-GP; G8979-GP

== ENCOUNTER → 2016-09-16 | Outpatient (RCR) | payer MEDICARE, MEDICAID ==
[~2016-09-16] MED LIST changes: +ALDACTONE 100M100 MG PO; +AMITRIPTYLINE H50 M1 PO; +BASAGLAR K100 UNIT/1; +BASAGLAR K100 UNIT/1 SQ; +FLEXERIL5 MG PO; +K-DUR 10 MEQ T10 MEQ; +KLOR-CON SPRIN10 MEQ PO; +LEVEMIR SQ; +MACROBID 1100 MG/CAP PO; +PRINIVIL5 MG PO
== END | disposition home or self-care (01) ==
LOC: WSST
DX: R13.10 Dysphagia, unspecified (principal); G20 Parkinson's disease
CPT/HCPCS: G8996-GN; G8997-GN

== ENCOUNTER 2016-09-18 15:13 | Emergency (ER) | payer MEDICARE, MEDICAID ==
[~2016-09-18] VITALS: Ht 154.9 cm; Wt 84.1 kg
[2016-09-18 15:21] VITALS: TEMP 96.7
[2016-09-18 15:33] LABS: BASO % 0.7 % (0.0-2.0); EOS # 0.3 (0.0-0.7); EOS % 7.9 % (0-4.0); GRAN # 2.2 (1.4-6.5); GRAN % 53.7 % (42.2-75.2); LYMPH # 1.1 (1.2-3.4); LYMPH % 27.8 % (20.0-51.0); MEAN CELL VOLUME 78 fl (80.0-100.0); MEAN CORPUSCULAR HGB CONC 31 g/dl (33.0-37.0); MONO # 0.4 (0.1-0.6); MONO % 9.7 % (1.7-9.3); PLATELET COUNT 117 K/mm3 (130-400); RED BLOOD COUNT 2.93 M/mm3 (4.10-5.30); REDCELL DISTRIBUTION WIDTH-CV 16.5 % (11.5-14.5)
[2016-09-18 15:35] LABS: HEMATOCRIT 22.9 % (37.0-47.0); MEAN CORPUSCULAR HEMOGLOBIN 24 pg (27.0-31.0)
[2016-09-18 15:45] LABS: ADJUSTED CALCIUM 8.9 mg/dL (8.4-10.2); ALANINE AMINOTRANSFERASE 15 U/L (9-52); ALKALINE PHOSPHATASE 160 U/L (50-136); ANION GAP 8 mmol/L (7-16); BILIRUBIN,TOTAL 1.1 mg/dL (0.0-1.0); BLOOD UREA NITROGEN 13 mg/dL (7-17); CALCIUM 8.1 mg/dL (8.4-10.2); CARBON DIOXIDE 26 mmol/L (22-30); CHLORIDE 91 mmol/L (98-107); CREATININE, serum 0.71 mg/dL (0.52-1.25); POTASSIUM 5.6 mmol/L (3.4-5.0); SODIUM 125 mmol/L (137-145); TOTAL PROTEIN 6.1 gm/dL (6.4-8.2)
[2016-09-18 15:47] LABS: GLUCOSE 618 mg/dL (74-106)
[2016-09-18 16:01] LABS: PROLACTIN < 1.4 ng/mL (3.0-18.6)
[2016-09-18 16:25] LABS: PH 6 (5-8); SQUAMOUS EPITHELIAL None Seen /hpf; URINE APPEARANCE Clear; URINE BACTERIA None Seen /hpf; URINE BILIRUBIN Negative (NEGATIVE); URINE BLOOD Negative (NEGATIVE); URINE COLOR Colorless; URINE GLUCOSE Negative (NEGATIVE); URINE KETONE Negative (NEGATIVE); URINE RBC 0-2 /hpf; URINE UROBILINOGEN Negative (NEGATIVE); URINE WBC 0-2 /hpf
[2016-09-18] MEDS ORDERED: ALDACTONE50 MG PO (16:45)
[2016-09-18] MEDS ORDERED: XIFAXAN550 MG PO (16:47)
[2016-09-18] MEDS ORDERED: DIABETA 5MG5 MG/TAB PO (16:53)
[2016-09-18 17:46] VITALS: BP 103/70; PULSE 71
== END 2016-09-18 17:38 | disposition home or self-care (01) ==
LOC: COL.ER 15:13
PROVIDERS: Family Medicine
DX: R56.9 Unspecified convulsions (principal); E11.65 Type 2 diabetes mellitus with hyperglycemia; I10 Essential (primary) hypertension; F41.9 Anxiety disorder, unspecified; F32.9 Major depressive disorder, single episode, unspecified; G20 Parkinson's disease; D64.9 Anemia, unspecified; K72.90 Hepatic failure, unspecified without coma; Z79.4 Long term (current) use of insulin
CPT/HCPCS: J1815; J7030

== ENCOUNTER 2016-09-26 13:15 | Outpatient (RCR) | payer MEDICARE, MEDICAID ==
[2016-10-07] MEDS ORDERED: AMITRIPTYLINE H50 M1 PO (19:28)
[2016-10-07] MEDS ORDERED: BASAGLAR K100 UNIT/1 SQ (19:31)
[2016-10-07] MEDS ORDERED: PRINIVIL5 MG PO (19:32)
[2016-10-07] MEDS ORDERED: KLOR-CON SPRIN10 MEQ PO (19:34)
[2016-10-07] MEDS ORDERED: SUPRAX200 MG PO (19:35)
[2016-10-12] MEDS ORDERED: FLEXERIL5 MG PO (12:19)
[2016-10-12] MEDS ORDERED: ALDACTONE50 MG PO (12:20)
[2016-10-12] MEDS ORDERED: LASIX 40MG TABL40 MG PO (12:22)
== END 2016-11-01 08:49 | disposition home or self-care (01) ==
LOC: WSST 13:15
DX: R13.10 Dysphagia, unspecified (principal); G20 Parkinson's disease

== ENCOUNTER 2016-10-07 17:49 | Inpatient (IN) | payer MEDICARE, MEDICAID ==
[~2016-10-07] VITALS: Ht 154.9 cm; Wt 77.2 kg
[2016-10-07 18:41] LABS: BASO % 0.6 % (0.0-2.0); EOS # 0.3 (0.0-0.7); EOS % 9.9 % (0-4.0); GRAN # 1.8 (1.4-6.5); GRAN % 52.6 % (42.2-75.2); LYMPH # 0.8 (1.2-3.4); LYMPH % 24.3 % (20.0-51.0); MEAN CELL VOLUME 85 fl (80.0-100.0); MEAN CORPUSCULAR HGB CONC 30 g/dl (33.0-37.0); MEAN PLATELET VOLUME 11.7 fl (7.4-10.4); MONO # 0.4 (0.1-0.6); MONO % 12.3 % (1.7-9.3); PLATELET COUNT 86 K/mm3 (130-400); RED BLOOD COUNT 2.71 M/mm3 (4.10-5.30); REDCELL DISTRIBUTION WIDTH-CV 18.3 % (11.5-14.5); WHITE BLOOD COUNT 3.4 K/mm3 (4.8-10.8)
[2016-10-07 18:45] LABS: INR 1.1 (0.8-3.0); PROTHROMBIN TIME 12.7 SECONDS (9.7-12.8)
[2016-10-07 18:46] LABS: HEMATOCRIT 22.9 % (37.0-47.0); HEMOGLOBIN 6.9 g/dl (12.5-16.0); MEAN CORPUSCULAR HEMOGLOBIN 25 pg (27.0-31.0)
[2016-10-07 18:56] LABS: ADJUSTED CALCIUM 8.9 mg/dL (8.4-10.2); ALANINE AMINOTRANSFERASE 20 U/L (9-52); ALBUMIN 2.7 gm/dL (3.5-5.0); ALKALINE PHOSPHATASE 139 U/L (50-136); ANION GAP 8 mmol/L (7-16); BILIRUBIN,TOTAL 0.7 mg/dL (0.0-1.0); BLOOD UREA NITROGEN 10 mg/dL (7-17); CALCIUM 7.9 mg/dL (8.4-10.2); CARBON DIOXIDE 24 mmol/L (22-30); CHLORIDE 95 mmol/L (98-107); CREATININE, serum 0.64 mg/dL (0.52-1.25); POTASSIUM 4.4 mmol/L (3.4-5.0); SODIUM 126 mmol/L (137-145); TOTAL PROTEIN 5.4 gm/dL (6.4-8.2)
[2016-10-07 19:02] LABS: GLUCOSE 564 mg/dL (74-106)
[2016-10-07 19:08] LABS: B-TYPE NATRIURETIC PEPTIDE 179 pg/mL (0-125); TROPONIN-I < 0.012 ng/mL (0.000-0.034)
[2016-10-07 19:09] LABS: PH 6 (5-8); SQUAMOUS EPITHELIAL 0-2 /hpf; URINE APPEARANCE Clear; URINE BACTERIA None Seen /hpf; URINE BILIRUBIN Negative (NEGATIVE); URINE BLOOD Negative (NEGATIVE); URINE COLOR Yellow; URINE GLUCOSE 3+ (NEGATIVE); URINE KETONE Negative (NEGATIVE); URINE RBC 0-2 /hpf; URINE UROBILINOGEN Negative (NEGATIVE); URINE WBC 0-2 /hpf
[2016-10-07] MEDS ORDERED: AMITRIPTYLINE H50 M1 PO (19:28)
[2016-10-07] MEDS ORDERED: BASAGLAR K100 UNIT/1 SQ (19:31)
[2016-10-07] MEDS ORDERED: PRINIVIL5 MG PO (19:32)
[2016-10-07] MEDS ORDERED: KLOR-CON SPRIN10 MEQ PO (19:34)
[2016-10-07] MEDS ORDERED: SUPRAX200 MG PO (19:35)
[2016-10-07 20:20] VITALS: BP 117/49; PULSE 80; TEMP 97.7
[2016-10-07 22:52] VITALS: BP 125/58; PULSE 81; TEMP 98.4
[2016-10-08] VITALS (584 sets, daily range): BP systolic 91–133; BP diastolic 39–68; PULSE 66–85; TEMP 97.2–99.3; O2SAT 91–100
[2016-10-08 01:09] LABS: MAGNESIUM 1.8 mg/dL (1.6-2.3); PHOSPHOROUS 3.4 mg/dL (2.5-4.5)
[2016-10-08 01:51] LABS: TROPONIN-I < 0.012 ng/mL (0.000-0.034)
[2016-10-08 04:03] LABS: MAGNESIUM 1.6 mg/dL (1.6-2.3); POTASSIUM 3.2 mmol/L (3.4-5.0)
[2016-10-08 06:42] LABS: BASO % 0.8 % (0.0-2.0); EOS # 0.4 (0.0-0.7); EOS % 9.1 % (0-4.0); GRAN # 2.1 (1.4-6.5); LYMPH # 0.9 (1.2-3.4); LYMPH % 23.1 % (20.0-51.0); MEAN CELL VOLUME 82 fl (80.0-100.0); MEAN CORPUSCULAR HGB CONC 31 g/dl (33.0-37.0); MEAN PLATELET VOLUME 11.8 fl (7.4-10.4); MONO # 0.5 (0.1-0.6); MONO % 12.7 % (1.7-9.3); PLATELET COUNT 92 K/mm3 (130-400); RED BLOOD COUNT 2.96 M/mm3 (4.10-5.30); REDCELL DISTRIBUTION WIDTH-CV 17.6 % (11.5-14.5); WHITE BLOOD COUNT 3.9 K/mm3 (4.8-10.8)
[2016-10-08 06:43] LABS: HEMATOCRIT 24.3 % (37.0-47.0); HEMOGLOBIN 7.6 g/dl (12.5-16.0); MEAN CORPUSCULAR HEMOGLOBIN 26 pg (27.0-31.0)
[2016-10-08 06:58] LABS: ADJUSTED CALCIUM 9.1 mg/dL (8.4-10.2); ALBUMIN 2.7 gm/dL (3.5-5.0); BILIRUBIN,TOTAL 0.9 mg/dL (0.0-1.0); CALCIUM 8.1 mg/dL (8.4-10.2); CREATININE, serum 0.62 mg/dL (0.52-1.25); POTASSIUM 3.7 mmol/L (3.4-5.0); TOTAL PROTEIN 5.7 gm/dL (6.4-8.2)
[2016-10-09 03:48] VITALS: BP 100/43; BP 93/41; PULSE 69; TEMP 98
[2016-10-09 07:35] LABS: BASO % 0.6 % (0.0-2.0); EOS # 0.4 (0.0-0.7); EOS % 10.8 % (0-4.0); GRAN # 1.5 (1.4-6.5); GRAN % 44.8 % (42.2-75.2); LYMPH # 1.1 (1.2-3.4); LYMPH % 32.7 % (20.0-51.0); MEAN CELL VOLUME 83 fl (80.0-100.0); MEAN CORPUSCULAR HGB CONC 31 g/dl (33.0-37.0); MEAN PLATELET VOLUME 11.2 fl (7.4-10.4); MONO # 0.4 (0.1-0.6); MONO % 10.8 % (1.7-9.3); PLATELET COUNT 89 K/mm3 (130-400); RED BLOOD COUNT 3.05 M/mm3 (4.10-5.30); REDCELL DISTRIBUTION WIDTH-CV 18.3 % (11.5-14.5); WHITE BLOOD COUNT 3.2 K/mm3 (4.8-10.8)
[2016-10-09 07:38] LABS: HEMATOCRIT 25.2 % (37.0-47.0); HEMOGLOBIN 7.8 g/dl (12.5-16.0); MEAN CORPUSCULAR HEMOGLOBIN 26 pg (27.0-31.0)
[2016-10-09 07:41] VITALS: BP 98/48; PULSE 71; TEMP 97.8
[2016-10-09 07:48] LABS: ADJUSTED CALCIUM 9.2 mg/dL (8.4-10.2); ALBUMIN 2.6 gm/dL (3.5-5.0); CALCIUM 8.1 mg/dL (8.4-10.2); CREATININE, serum 0.76 mg/dL (0.52-1.25); POTASSIUM 4.1 mmol/L (3.4-5.0); TOTAL PROTEIN 5.5 gm/dL (6.4-8.2)
[2016-10-09 11:40] VITALS: BP 107/54; PULSE 75; TEMP 98.5
[2016-10-09 15:31] VITALS: BP 113/47; PULSE 79; TEMP 97.9
[2016-10-09 20:28] VITALS: BP 124/59; PULSE 76; TEMP 98.3
[2016-10-09 22:13] VITALS: BP 131/56; PULSE 79; TEMP 98.7
[2016-10-10] VITALS (7 sets, daily range): BP systolic 11–183; BP diastolic 45–79; PULSE 70–90; TEMP 97.8–98.8
[2016-10-10 07:53] LABS: CALCIUM 8.9 mg/dL (8.4-10.2); CREATININE, serum 0.74 mg/dL (0.52-1.25); MAGNESIUM 1.6 mg/dL (1.6-2.3); POTASSIUM 3.8 mmol/L (3.4-5.0)
[2016-10-10 07:55] LABS: BASO % 0.9 % (0.0-2.0); EOS # 0.4 (0.0-0.7); EOS % 11.3 % (0-4.0); GRAN # 1.3 (1.4-6.5); GRAN % 39.7 % (42.2-75.2); LYMPH # 1.2 (1.2-3.4); LYMPH % 36.8 % (20.0-51.0); MEAN CELL VOLUME 82 fl (80.0-100.0); MEAN CORPUSCULAR HGB CONC 31 g/dl (33.0-37.0); MEAN PLATELET VOLUME 11.7 fl (7.4-10.4); MONO # 0.4 (0.1-0.6); PLATELET COUNT 106 K/mm3 (130-400); RED BLOOD COUNT 3.32 M/mm3 (4.10-5.30); WHITE BLOOD COUNT 3.3 K/mm3 (4.8-10.8)
[2016-10-10 07:56] LABS: HEMATOCRIT 27.1 % (37.0-47.0); HEMOGLOBIN 8.4 g/dl (12.5-16.0); MEAN CORPUSCULAR HEMOGLOBIN 25 pg (27.0-31.0)
[2016-10-11] VITALS (18 sets, daily range): BP systolic 103–149; BP diastolic 44–74; PULSE 66–96; TEMP 97.4–98.3
[2016-10-11 07:25] LABS: MEAN CELL VOLUME 81 fl (80.0-100.0); MEAN CORPUSCULAR HGB CONC 31 g/dl (33.0-37.0); MEAN PLATELET VOLUME 11.3 fl (7.4-10.4); PLATELET COUNT 116 K/mm3 (130-400); WHITE BLOOD COUNT 4.3 K/mm3 (4.8-10.8)
[2016-10-11 07:29] LABS: HEMATOCRIT 28.5 % (37.0-47.0); HEMOGLOBIN 8.9 g/dl (12.5-16.0); MEAN CORPUSCULAR HEMOGLOBIN 25 pg (27.0-31.0)
[2016-10-11 07:30] LABS: INR 1.1 (0.8-3.0); PROTHROMBIN TIME 12.6 SECONDS (9.7-12.8)
[2016-10-11 07:32] LABS: PARTIAL THROMBOPLASTIN TIME 32.1 SECONDS (26.0-37.0)
[2016-10-11 07:38] LABS: CALCIUM 8.9 mg/dL (8.4-10.2); CREATININE, serum 0.81 mg/dL (0.52-1.25); MAGNESIUM 1.8 mg/dL (1.6-2.3); POTASSIUM 3.5 mmol/L (3.4-5.0)
[2016-10-12 01:10] VITALS: BP 126/59; PULSE 74; TEMP 97.9
[2016-10-12 03:56] VITALS: BP 107/53; PULSE 68; TEMP 97.6
[2016-10-12 05:18] VITALS: BP 107/53; PULSE 68; TEMP 97.6
[2016-10-12 07:15] LABS: BASO % 0.3 % (0.0-2.0); EOS % 0.6 % (0-4.0); GRAN # 1.8 (1.4-6.5); GRAN % 57.1 % (42.2-75.2); HEMATOCRIT 26.1 % (37.0-47.0); HEMOGLOBIN 8.2 g/dl (12.5-16.0); LYMPH # 0.9 (1.2-3.4); LYMPH % 27.8 % (20.0-51.0); MEAN CELL VOLUME 81 fl (80.0-100.0); MEAN CORPUSCULAR HEMOGLOBIN 25 pg (27.0-31.0); MEAN CORPUSCULAR HGB CONC 31 g/dl (33.0-37.0); MEAN PLATELET VOLUME 10.9 fl (7.4-10.4); MONO # 0.4 (0.1-0.6); MONO % 13.9 % (1.7-9.3); PLATELET COUNT 106 K/mm3 (130-400); RED BLOOD COUNT 3.24 M/mm3 (4.10-5.30); REDCELL DISTRIBUTION WIDTH-CV 17.3 % (11.5-14.5); WHITE BLOOD COUNT 3.1 K/mm3 (4.8-10.8)
[2016-10-12 07:20] LABS: CALCIUM 8.2 mg/dL (8.4-10.2); CREATININE, serum 0.84 mg/dL (0.52-1.25); POTASSIUM 3.7 mmol/L (3.4-5.0)
[2016-10-12 08:18] VITALS: BP 98/66; PULSE 74; TEMP 98.6
[2016-10-12 09:51] VITALS: BP 98/66; PULSE 74; TEMP 98.6
[2016-10-12 11:34] VITALS: BP 105/52; PULSE 969; TEMP 97.9
[2016-10-12] MEDS ORDERED: FLEXERIL5 MG PO (12:19)
[2016-10-12] MEDS ORDERED: ALDACTONE50 MG PO (12:20)
[2016-10-12] MEDS ORDERED: LASIX 40MG TABL40 MG PO (12:22)
== END 2016-10-12 13:24 | disposition home health service (06) | DRG 441 ==
LOC: COL.ER 17:49 → ICU 18:48 → MEDICAL 18:48 → ICU 10-08 01:21 → MEDICAL 10-08 14:33
PROVIDERS: Family Medicine; Internal Medicine; Internal Medicine Interventional Cardiology; Physician Assistant
PROC: B2111ZZ Fluoroscopy of Multiple Coronary Arteries using Low Osmolar Contrast (ICD-10-PCS; principal; 2016-10-11)
PROC: B2151ZZ Fluoroscopy of Left Heart using Low Osmolar Contrast (ICD-10-PCS; 2016-10-11)
DX: K75.81 Nonalcoholic steatohepatitis (NASH) (principal); I50.33 Acute on chronic diastolic (congestive) heart failure; D61.818 Other pancytopenia; E87.1 Hypo-osmolality and hyponatremia; E46 Unspecified protein-calorie malnutrition; I11.0 Hypertensive heart disease with heart failure; Z66 Do not resuscitate; E11.65 Type 2 diabetes mellitus with hyperglycemia; J44.9 Chronic obstructive pulmonary disease, unspecified; G20 Parkinson's disease; E11.42 Type 2 diabetes mellitus with diabetic polyneuropathy; Z79.4 Long term (current) use of insulin; K74.60 Unspecified cirrhosis of liver
CPT/HCPCS: 99223-AI; 99232-AI; 99233-AI; 99238; 99239; A4315; C1760; C1894; J1200; J1650; J1815; J1940; J2250; J2930; J3010; J3475; J3480; P9016; Q9967